=== PATIENT | male | born 1980 | race Caucasian/White ===

== ENCOUNTER 2018-01-02 16:35 | Emergency (ER) | payer MEDICARE, MEDICAID ==
--- NOTE | 2018-01-02 18:07 | UC ---
Ear Complaint HPI - HPI Summary HPI Summary: 37-year-old male comes in with a complaint of left ear pain. Patient was blowing his nose when he had sudden onset of severe left ear pain. He feels like he has ruptured his left eardrum. In the past as ruptured his right eardrum many says that feels similar. She's been having upper respiratory tract infection symptoms with increased congestion and that is why he was blowing his nose. - History of Current Complaint Stated Complaint: RIGHT EAR PAIN Time Seen by Provider: 01/02/18 17:57 - Allergies/Home Medications Allergies/Adverse Reactions: Allergies Allergy/AdvReac Type Severity Reaction Status Date / Time MS Penicillins [Penicillins] Allergy Intermediate Hives Verified 03/26/16 20:24 PMH/Surg Hx/FS Hx/Imm Hx - Additional Past Medical History Additional PMH: RIGHT TM RUPTURE - Surgical History Surgical History: Yes Surgery Procedure, Year, and Place: ear surgeries. [facility] (COCHLEAR IMPLANT) RIGHT EAR. LEFT KNEE SX - Family History Known Family History: Positive: Other - + asthma - Social History Alcohol Use: Daily Substance Use Type: None Smoking Status (MU): Heavy Every Day Tobacco Smoker Type: Cigarettes Amount Used/How Often: 1 ppd Length of Time of Smoking/Using Tobacco: 16 YRS Have You Smoked in the Last Year: Yes Household Exposure Type: Cigarettes - Immunization History Most Recent Tetanus Shot: unknown Review of Systems Constitutional: Negative Skin: Negative Eyes: Negative ENT: Sore Throat, Ear Ache, Nasal Discharge, Sinus Congestion, Sinus Pain/ Tenderness Respiratory: Negative Cardiovascular: Negative Gastrointestinal: Negative Motor: Negative Neurovascular: Negative Musculoskeletal: Negative Neurological: Negative Psychological: Negative Is Patient Immunocompromised?: No All Other Systems Reviewed And Are Negative: Yes Physical Exam Triage Information Reviewed: Yes Appearance: Well-Appearing, Well-Nourished, Pain Distress - MILD Vital Signs Reviewed: Yes Eye Exam: Normal Eyes: Positive: Conjunctiva Clear ENT: Positive: Pharyngeal erythema, Nasal congestion, Nasal drainage, Other - The right TM is not visible. The left TM appears to have a hole in it. Neck exam: Normal Neck: Positive: Supple, Nontender Respiratory: Positive: Lungs clear, Normal breath sounds, No respiratory distress, No accessory muscle use Cardiovascular: Positive: RRR Musculoskeletal Exam: Normal Musculoskeletal: Positive: Strength Intact, ROM Intact, No Edema Neurological Exam: Normal Neurological: Positive: Alert, Muscle Tone Normal Psychological Exam: Normal Psychological: Positive: Normal Response To Family, Age Appropriate Behavior Skin Exam: Normal Ear Complaint Course/Dx - Course Course Of Treatment: Patient already sees the ENT in town here Dr. Swanson. He will follow-up with Dr. Swanson. - Differential Dx/Diagnosis Provider Diagnoses: LEFT TM RUPTURE. SINUSITIS Discharge - Sign-Out/Discharge Documenting (check all that apply): Patient Departure All imaging exams completed and their final reports reviewed: No Studies - Discharge Plan Condition: Stable Disposition: HOME Patient Education Materials: Ruptured Eardrum (ED), Sinusitis (ED) Referrals: RAVEN Adames [Primary Care Provider] - Elliot Swanson MD [Medical Doctor] - Additional Instructions: FOLLOW UP WITH YOUR DOCTOR. GET RECHECKED FOR ANY WORSENING OF YOUR CONDITION OR QUESTIONS OR CONCERNS. - Billing Disposition and Condition Condition: STABLE Disposition: Home
[2018-01-02 18:08] VITALS: BP 133/85
== END 2018-01-02 18:16 | disposition home or self-care (01) ==
LOC: UCCORT 16:35
DX: H72.92 Unspecified perforation of tympanic membrane, left ear (principal); J32.9 Chronic sinusitis, unspecified; Z88.0 Allergy status to penicillin; F17.210 Nicotine dependence, cigarettes, uncomplicated
CPT/HCPCS: 99212; G0463

== ENCOUNTER 2018-04-24 18:21 | Emergency (ER) | payer MEDICARE, MEDICAID ==
[2018-04-24 19:04] VITALS: BP 138/81
--- NOTE | 2018-04-24 19:25 | UC ---
Skin Complaint HPI - HPI Summary HPI Summary: Pt c/o left hand pain, swelling and purulent discharge with concern for FB. Pt states that he got a wooden splinter in his left palm of hand ~ 1 week ago. Pt thought he removed full splinter but continues to have mild swelling, tenderness and able to get purulent discharge from wound. Pt has been soaking hand in warm water and epsom salts shanda up to three times per day. - History of Current Complaint Chief Complaint: UCSkin Time Seen by Provider: 04/24/18 18:57 Stated Complaint: SKIN ISSUE, LEFT HAND Hx Obtained From: Patient Onset/Duration: Gradual Onset, Lasting Days, Still Present Skin Exposure Onset/Duration: Days Ago Timing: Constant Onset Severity: Mild Current Severity: Moderate Pain Intensity: 9 Location: Discrete, Hand (Left) Character: Pain, Raised, Painful Aggravating Factor(s): Touch Associated Signs & Symptoms: Positive: Drainage, Tenderness Related History: Foreign Body - Allergy/Home Medications Allergies/Adverse Reactions: Allergies Allergy/AdvReac Type Severity Reaction Status Date / Time Penicillins Allergy Intermediate Hives Verified 04/24/18 18:59 PMH/Surg Hx/FS Hx/Imm Hx Previously Healthy: Yes - Surgical History Surgical History: Yes Surgery Procedure, Year, and Place: ear surgeries. [facility] (COCHLEAR IMPLANT) RIGHT EAR. LEFT KNEE SX - Family History Known Family History: Positive: Other - + asthma - Social History Occupation: Employed Full-time Lives: With Family Alcohol Use: Daily Substance Use Type: None Smoking Status (MU): Heavy Every Day Tobacco Smoker Type: Cigarettes Amount Used/How Often: 1 ppd Length of Time of Smoking/Using Tobacco: 16 YRS Have You Smoked in the Last Year: Yes Household Exposure Type: Cigarettes - Immunization History Most Recent Tetanus Shot: unknown Review of Systems All Other Systems Reviewed And Are Negative: Yes Constitutional: Positive: Negative Skin: Positive: Other - swelling, with open wound and c/o tenderness and able to produce small amount of purulent discharge. Eyes: Positive: Negative ENT: Positive: Negative Respiratory: Positive: Negative Cardiovascular: Positive: Negative Gastrointestinal: Positive: Negative Genitourinary: Positive: Negative Motor: Positive: Negative Neurovascular: Positive: Negative Musculoskeletal: Positive: Edema, Myalgia Neurological: Positive: Negative Psychological: Positive: Negative Is Patient Immunocompromised?: No Physical Exam Triage Information Reviewed: Yes Appearance: Well-Appearing Vital Signs: Initial Vital Signs Temp 97.9 F 04/24/18 19:00 Pulse 87 04/24/18 19:00 Resp 19 04/24/18 19:00 BP 138/81 04/24/18 19:00 Pulse Ox 99 04/24/18 19:00 Vital Signs Reviewed: Yes Eye Exam: Normal ENT Exam: Normal ENT: Positive: Other - hard of hearing Dental: Positive: Gross Decay/Caries @ Neck exam: Normal Respiratory: Positive: No respiratory distress Musculoskeletal: Positive: Edema @ - left plamar aspect of hand at base of second and third fingers Neurological Exam: Normal Psychological Exam: Normal Skin Exam: Other - plamar aspect of left hand at base of second and third fingers. swelling, with open wound and c/o tenderness and able to produce small amount of purulent discharge. Course/Dx - Differential Diagnoses - Skin Complaint Differential Diagnoses: Cellulitis, Foreign Body - Diagnoses Provider Diagnosis: Local infection of wound Discharge - Sign-Out/Discharge Documenting (check all that apply): Patient Departure All imaging exams completed and their final reports reviewed: No - Discharge Plan Condition: Stable Disposition: HOME Prescriptions: DOXYcycline CAP(*) [DOXYcycline 100MG CAP(*)] 100 mg PO Q12H #14 cap Patient Education Materials: Wound Infection (DC) Referrals: Dane LoraDane [Primary Care Provider] - Alanis Chakraborty MD [Medical Doctor] - If Needed - Billing Disposition and Condition Condition: STABLE Disposition: Home
[2018-04-24] MEDS ORDERED: Tetan/Diph/Pertus SYR(Tdap)* 0.5 ML SYR(BOOSTRIX) use SYR IM ONE (19:26)
--- NOTE | 2018-04-25 09:17 | UC ---
- Progress Note Progress Note: xray report left hand: IMPRESSION: Normal left hand radiograph. If the patient's symptoms persist, follow-up imaging is recommended. Course/Dx - Diagnoses Provider Diagnoses: Local infection of wound Discharge - Sign-Out/Discharge Documenting (check all that apply): Patient Departure All imaging exams completed and their final reports reviewed: Yes - Discharge Plan Condition: Stable Disposition: HOME Prescriptions: DOXYcycline CAP(*) [DOXYcycline 100MG CAP(*)] 100 mg PO Q12H #14 cap Patient Education Materials: Wound Infection (DC) Referrals: RAVEN Adames [Medical Doctor] - Alanis Chakraborty MD [Medical Doctor] - If Needed - Billing Disposition and Condition Condition: STABLE Disposition: Home
== END 2018-04-24 19:33 | disposition home or self-care (01) ==
LOC: UCCORT 18:21
DX: S61.402A Unspecified open wound of left hand, initial encounter (principal); L08.9 Local infection of the skin and subcutaneous tissue, unspecified; X58.XXXA Exposure to other specified factors, initial encounter; Y92.9 Unspecified place or not applicable; F17.210 Nicotine dependence, cigarettes, uncomplicated
CPT/HCPCS: 90471; 90715; 99212; G0463

== ENCOUNTER 2018-07-30 16:42 | Emergency (ER) | payer MEDICARE, MEDICAID ==
[2018-07-30 17:13] VITALS: BP 124/83
--- NOTE | 2018-07-30 17:31 | UC ---
Lower Extremity/Ankle HPI - HPI Summary HPI Summary: 37 -year-old male who attempted to start a lawnmower last evening when he twisted his left knee and states that it buckled. He's had difficulty walking and states he cannot lift the lower part of his leg up from the table. The history of knee surgery years ago. - History of Current Complaint Chief Complaint: UCLowerExtremity Stated Complaint: LEFT KNEE INJURY Time Seen by Provider: 07/30/18 17:18 Hx Obtained From: Patient Onset/Duration: Sudden Onset Severity Initially: Moderate Severity Currently: Moderate Pain Intensity: 6 Aggravating Factor(s): Ambulation Alleviating Factor(s): Nothing Able to Bear Weight: Yes - that he feels like his knee will buccal with weightbearing. - Allergies/Home Medications Allergies/Adverse Reactions: Allergies Allergy/AdvReac Type Severity Reaction Status Date / Time Penicillins Allergy Intermediate Hives Verified 07/30/18 17:13 Home Medications: Home Medications NK [No Home Medications Reported] 07/30/18 [History Confirmed 07/30/18] PMH/Surg Hx/FS Hx/Imm Hx Previously Healthy: Yes - Surgical History Surgical History: Yes Surgery Procedure, Year, and Place: ear surgeries. DENOMINATIONAL (COCHLEAR IMPLANT) RIGHT EAR. LEFT KNEE SX-lateral release age 14 yo - Family History Known Family History: Positive: Other - + asthma - Social History Lives: With Family Alcohol Use: Daily Alcohol Amount: 12 pack beer daily Substance Use Type: None Smoking Status (MU): Heavy Every Day Tobacco Smoker Type: Cigarettes Amount Used/How Often: 1 ppd Length of Time of Smoking/Using Tobacco: 16 YRS Have You Smoked in the Last Year: Yes Household Exposure Type: Cigarettes - Immunization History Most Recent Tetanus Shot: unknown Review of Systems All Other Systems Reviewed And Are Negative: Yes Motor: Positive: Decreased ROM - Patient is unable to lift the left lower leg off the table. Neurovascular: Positive: Negative Musculoskeletal: Positive: Decreased ROM - Pain with movement of knee and unable to lift his left lower leg up off the table. Neurological: Positive: Negative Is Patient Immunocompromised?: No Physical Exam Triage Information Reviewed: Yes Appearance: Well-Appearing, No Pain Distress, Well-Nourished Vital Signs: Initial Vital Signs Temp 98.5 F 07/30/18 17:08 Pulse 89 07/30/18 17:08 Resp 17 07/30/18 17:08 BP 124/83 07/30/18 17:08 Pulse Ox 100 07/30/18 17:08 Vital Signs Reviewed: Yes Musculoskeletal: Positive: Strength Limited @ - Patient is unable to lift his lower leg up off the table., ROM Limited @ - There appears to be some laxity with real movement of the lower leg. Patellar ligaments especially the patellar tibial ligament does not appear to be intact. There is tenderness in that area on palpation. The patella seems very loose with movement. Neurological: Positive: Alert Lower Extremity Course/Dx - Course Course Of Treatment: Left knee x-ray: FINDINGS: BONE DENSITY: Normal. BONES: There is no displaced fracture. JOINTS: There is moderate patellofemoral osteoarthritis. ALIGNMENT: There is no dislocation. SOFT TISSUES: Unremarkable. OTHER FINDINGS: None. IMPRESSION: OSTEOARTHRITIS. NO ACUTE OSSEOUS INJURY. IF SYMPTOMS PERSIST, RECOMMEND REPEAT IMAGING. I consulted Dr. Devine and then consulted Dr. Youngblood orthopedist, who reviewed the x-ray and advised a knee immobilizer, crutches and to follow-up at his office early morning to call tomorrow and make that appointment. Patient is agreeable to this plan of action. - Differential Dx/Diagnosis Provider Diagnosis: Patellar tendon rupture Discharge - Sign-Out/Discharge Documenting (check all that apply): Patient Departure All imaging exams completed and their final reports reviewed: Yes - Discharge Plan Condition: Fair Disposition: HOME Patient Education Materials: Tendon Rupture (ED) Referrals: Salvador Oseguera MD [Medical Doctor] - No Primary Care Phys,NOPCP [Primary Care Provider] - Additional Instructions: The knee immobilizer in place, apply ice to the sore area, Tylenol for pain or Motrin as directed. You are to call the office tomorrow and make an appointment for early morning. The office number is [phone]. Tell them you were seen at [facility], the nurse practitioner spoke with Dr. Youngblood on the phone who advised knee immobilizer and crutches and to call the office tomorrow and make an appointment for early for further care. - Billing Disposition and Condition Condition: FAIR Disposition: Home
== END 2018-07-30 18:36 | disposition home or self-care (01) ==
LOC: UCCORT 16:42
DX: S76.112A Strain of left quadriceps muscle, fascia and tendon, initial encounter (principal); Z88.0 Allergy status to penicillin; F17.210 Nicotine dependence, cigarettes, uncomplicated; X50.9XXA Other and unspecified overexertion or strenuous movements or postures, initial encounter; Y92.9 Unspecified place or not applicable
CPT/HCPCS: 99213; G0463

== ENCOUNTER 2018-08-02 13:17 | Day surgery (SDC) | payer MEDICARE, MEDICAID ==
[2018-08-02] MEDS ORDERED: Midazolam* 1 MG/ML 2 ML VIAL (2 MG) ONE (13:53)
[2018-08-02] MEDS ORDERED: fentaNYL* 50 MCG/ML 2 ML VIAL (100 MCG VIAL) ONE ×2 (13:53→19:20)
[2018-08-02] MEDS ORDERED: Dexamethasone IV* 4 MG/ML 1 ML (4 MG) ONE (17:14)
[2018-08-02] MEDS ORDERED: Ondansetron INJ* 2 MG/ML VIAL ONE (17:14)
[2018-08-02] MEDS ORDERED: fentaNYL* 50 MCG/ML 5 ML VIAL (250 MCG VIAL) ONE (17:14)
[2018-08-02] MEDS ORDERED: Lidocaine 2% PF * 5 ML VIAL ONE (17:14)
[2018-08-02] MEDS ORDERED: Midazolam* 1 MG/ML 5 ML VIAL (5 MG) ONE (17:14)
[2018-08-02] MEDS ORDERED: Propofol* 10 MG/ML 20 ML BTL ONE (17:14)
[2018-08-02] MEDS ORDERED: ceFAZolin 2 GM PREMIX in ORs 2 GM/50 ML BAG IVPB ONE (17:23)
[2018-08-02] MEDS ORDERED: Buffered Lidocaine 1% SYRIN* 1 ML/SYRINGE INTRADERM ONE (17:25)
[2018-08-02] MEDS ORDERED: Clindamycin 900 MG IVPREMIX(* 900 MG/50 ML SDV IV ONE (17:28)
[2018-08-02] MEDS ORDERED: Phenylephrine 40 MCG/ML SYRINGE ONE (17:56)
[2018-08-02] MEDS ORDERED: Bupivacaine 0.25% W/EPI* 10 ML SDV ONE (18:00)
[2018-08-02] MEDS ORDERED: Lactated Ringers 1000 ML Bag* 1,000 ML IV SCH (18:00)
[2018-08-02] MEDS ORDERED: EPHEDrine (Pressors)* 50 MG/ML VIAL ONE (18:10)
[2018-08-02] MEDS ORDERED: Ketorolac INJ* 30 MG/ML 1 ML VIAL ONE (18:34)
[2018-08-02] MEDS ORDERED: Ondansetron INJ* 2 MG/ML VIAL IV PRN (18:40)
[2018-08-02] MEDS ORDERED: Naloxone* 0.4 MG/ML 1 ML VIAL IV PRN (18:40)
[2018-08-02] MEDS ORDERED: fentaNYL* 50 MCG/ML 2 ML VIAL (100 MCG VIAL) IV PRN (18:40)
[2018-08-02] MEDS ORDERED: HYDROmorphone INJ1* 1 MG/ML SYRINGE IV PRN (18:40)
[2018-08-02] MEDS ORDERED: HYDROmorphone INJ1* 1 MG/ML SYRINGE ONE (18:56)
[2018-08-02 20:51] VITALS: BP 133/78
--- NOTE | 2018-08-03 20:17 | OP ---
OPERATIVE REPORT: DATE OF OPERATION: 08/02/18 DATE OF : 76 SURGEON: Salvador Oseguera MD MANAGER BUSINESS MANAGEMENT: IKE Soto A physician assistant spa manager was required for the length of the procedure for help with positioning, instrumentation, and closure. ANESTHESIOLOGIST: Dr. Nicholas Andujar. ANESTHESIA: General anesthesia, local anesthesia with Marcaine 0.5% with epinephrine. PRE-OP DIAGNOSES: 1. Left knee patellar tendon rupture. 2. Left knee chronic loose body, medial patella. POST-OP DIAGNOSES: 1. Left knee patellar tendon rupture. 2. Left knee chronic loose body, medial patella. 3. Chronic lateral retinacular release, left knee. OPERATIVE PROCEDURE: 1. Left knee open patellar tendon repair. 2. Left knee open removal of loose body and medial retinaculum repair. 3. Left knee assessment of lateral retinaculum. 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 The patient injured himself when starting a lawnmower. He fell over and could not get up. He was unable to extend his left knee. The following day, the patient went to [facility]. Again, unable to actively extend his knee there. He was placed in a knee immobilizer and given crutches. The patient had a history of a lateral release surgery in the left knee in 1994 and he has had some occasional pain or the sensation of instability in that knee since. He was unable to articulate exactly what he meant by instability. On exam, the patient had mild anterior soft tissue swelling about the proximal patella tendon. He had significant tenderness to palpation directly at the origin of the patellar tendon off the patella. Negative straight leg raise. The patient had knee extension strength less than 3/5. He could not extend that knee at all against gravity. X-rays of the left knee from 07/30/18 showed what looked to be a loose body or body about the medial aspect of the patellofemoral compartment, likely consistent with a distant past patellar instability episode. We placed the patient in knee immobilizer, had him continue crutches. Initially , we scheduled the patient for an MRI, but an operating room day became available the following day, so we decided to bring the patient directly to the operating room given the patient's exam. I discussed risks and potential complications with the patient of surgery. ANTIBIOTICS: Clindamycin 900 mg IV. IV FLUIDS: 2000 cc crystalloid. TOURNIQUET TIME: 84 minutes at 300 mmHg, left thigh tourniquet. CNZZ-RT-XPFT TIME: 78 minutes. SPECIMEN: Loose body. IMPLANTS: #2 FiberWire suture, x2. A Mitek Gryphon anchor x1, double loaded. COMPLICATIONS: None. ESTIMATED BLOOD LOSS: Minimal. DESCRIPTION OF PROCEDURE: In preoperative holding, the patient signed a written consent. Operative extremity was marked in preoperative holding. The patient was taken back to the operating room and placed supine on the operating room table. Sedated and intubated. A foot post was placed on the table to let the knee rest in 20 degrees of flexion. A tourniquet was placed around the left thigh. The left lower extremity was prepped and draped. Surgical time-out performed. Esmarch was applied and tourniquet elevated to 300 mmHg. I made standard anterior longitudinal skin incision. Next, dissected down to the extensor mechanism. Notable in the extensor mechanism was immediately visible a window to the lateral aspect of the patellofemoral compartment and patella, consistent with a prior lateral retinacular release, that had clearly gone through all layers of the retinaculum including synovium, creating a connection between the joint and the subcutaneous space. No evidence of acute trauma or acute tearing in this location. This defect appeared chronic. Evaluation of the proximal patella showed the superficial most aspect of the superficial periosteum over the patella and the patellar tendon was intact, but everything deep to that was torn. I learned this by making a longitudinal exploratory cut in that tissue at the midpoint between the medial and lateral aspect of the patellar tendon and feeling the undersurface and visualizing the torn patellar tendon. I dissected the tissue off the patella. The patellar tendon was noted both for being rather narrow and rather thin from superficial to deep. I also explored medial to the patellofemoral compartment. With my finger placed through the joint, I could palpate what had appeared to be a chronic loose body medial to the patella. It was clear that there was a soft tissue connection to the remainder of the patella. I figured that that could only irritate him currently and in the future, so decided to excise that. It could not be removed from within the joint, so I sharply dissected just the smallest amount of tissue off the patella, that superficial periosteum, revealing that loose body, removed it with sharp dissection. Interestingly, when I visualized the area surrounding this, the medial retinaculum looked somewhat deficient, although this was likely because of the sharp dissection off the loose body. I decided therefore that I would repair this medial retinaculum at the conclusion of the case. I next evaluated the lateral retinaculum. There was no evidence of acute tearing here and I figured that the patient's lateral retinaculum had been released for the past 20 years. I did not want to overly tighten the knee laterally or add lateral patellar tilt, but I also did not like the size of the knee joint itself seemed confluent with the subcutaneous tissue. Therefore, I placed 2 stitches in the lateral retinaculum to close down that window. I flexed the knee to 90 degrees of flexion and found that the repaired tissue became somewhat tight and the patella seemed laterally tilted during the range of motion. Therefore, I thought this repair might do more harm than good and so I removed those sutures. I next moved forward with the proximal patellar tendon repair. I prepared the bony surface of the distal patella with a curette, rongeur, and a ball-tipped bur. I next placed my 3 tunnels using a 2.0-mm drill bit. I placed passing suture. I next placed my Krackow stitches in the patellar tendon. I normally use FiberWire #5 suture for this. However, given how small the patellar tendon itself was and how minimal the subcutaneous tissue was between the skin and patellar tendon, I thought that these #5 FiberWire sutures might be overly prominent if I use them. Therefore, I used a smaller suture, FiberWire #2. I placed 2 Krackow stitches in the patellar tendon. I brought the FiberWire #2 sutures through the bone tunnels. I adjusted the position of those sutures proximally so that no soft tissue would become strangled by the ends of the suture. I tied 2 knots proximally with the knee in full extension. This excellently brought patellar tendon to bone. I was very happy with the repair. After the patellar tendon repair, I repaired the medial retinaculum. I did so with a Mitek Gryphon anchor placed into the patella. I placed 2 horizontal mattress stitches in the bulk of the medial retinaculum, which pulled it down nicely to bone. I next trialed the strength of my patellar tendon repair. Redfield easily flexed the knee down to 45 without damage to any of the involved tissues. Irrigation. Closure of the patellar tendon paratenon with a running stitch using Vicryl 0 suture. Closure of the subcutaneous tissue with buried simple stitches using Vicryl 2-0 suture. Closure of the skin with a running stitch using 4-0 nylon. Xeroform, 4x4s, ABDs, sterile Webril, Kanu bandage from foot to proximal thigh. I did use local anesthesia and Marcaine 0.5% with epinephrine prior to dressing application. After the dressing was applied, I dropped the tourniquet. A knee brace was applied, locked in extension. The patient was extubated and brought to the PACU. DISPOSITION: The patient was discharged home when medically stable. Wound care instructions provided. The patient was written prescriptions for Valium and Percocet to take as needed. The patient will follow up with me in the office in approximately 14 days. The patient will not start physical therapy until after that first clinic visit. [id number]/CPS #: [id number] LOIS
== END 2018-08-02 21:00 | disposition home or self-care (01) ==
LOC: OR 13:17
PROVIDERS: ATTEND Orthopaedic Surgery
DX: S76.112A Strain of left quadriceps muscle, fascia and tendon, initial encounter (principal); M23.42 Loose body in knee, left knee; X50.0XXA Overexertion from strenuous movement or load, initial encounter; Y92.9 Unspecified place or not applicable; I34.1 Nonrheumatic mitral (valve) prolapse; Z72.0 Tobacco use; F31.9 Bipolar disorder, unspecified
CPT/HCPCS: J0690; J1100; J1170; J1885; J2250; J2405; J2704; J3010

== ENCOUNTER 2018-09-11 02:33 | Inpatient (IN) | payer MEDICARE, MEDICAID ==
[2018-09-11] MEDS ORDERED: Morphine 4 MG/ML VIAL (1 ml) 4 MG/ML VIAL IV ONE (02:58)
[2018-09-11] MEDS ORDERED: ceFAZolin 1 GM ADVAN(*) 1 GM in NS 0.9% 50 ML* 50 ML IVPB ONE (02:59)
[2018-09-11] MEDS ORDERED: oxyCODONE/Acetamin 5/325 MG* TAB PO PRN ×2 (03:02→22:16)
[2018-09-11] MEDS ORDERED: diPHENhydraMINE IV* 50 MG/ML 1 ml VIAL (BENADRYL) IV PRN (03:02)
[2018-09-11] MEDS ORDERED: Ondansetron INJ* 2 MG/ML VIAL IV PRN (03:02)
[2018-09-11] MEDS ORDERED: Morphine 10 MG/ML VIAL (1 ml) IV PRN (03:02)
--- NOTE | 2018-09-11 03:02 | ED ---
Lower Extremity - HPI Summary HPI Summary: The patient is a 37 year old M brought in by EMS to [facility] with a chief complaint of an open wound on his knee. He fell backwards down his stairs early today and landed with his L knee flexed which split open stitches from a previous surgery he had for a patellar tendon repair on 08/03/18. The pt reported that the pain comes in waves and that his knee did not hit the ground. The pain is rated a 7/10. Pt denies a fever. Per triage the wound is 6cm x 3 cm. He also reported that he was healing well and advised not to smoke per Dr. Oseguera to allow the incision to heal correctly. He is unable to straighten his knee. The pt was drinking tonight prior to the injury happening. - History of Current Complaint Stated Complaint: FALL PER EMS Time Seen by Provider: 09/11/18 02:36 Hx Obtained From: Patient Mechanism Of Injury: Other - Fell down stairs and flexed L knee. The knee did not hit the ground per pt. Onset of Pain: Immediate Onset/Duration: Still Present Severity Initially: Severe Severity Currently: Severe Pain Intensity: 7 Pain Scale Used: 0-10 Numeric Timing: Constant Location: Other - L knee cap Associated Signs And Symptoms: Positive: Knee Pain, Other - Open wound approximately 6cm x 3cm as per triage.. Negative: Fever Aggravating Factor(s): Movement Alleviating Factor(s): Rest - Allergies/Home Medications Allergies/Adverse Reactions: Allergies Allergy/AdvReac Type Severity Reaction Status Date / Time Penicillins Allergy Intermediate Hives Verified 08/02/18 14:15 PMH/Surg Hx/FS Hx/Imm Hx Previously Healthy: No Endocrine/Hematology History: Denies: Hx Diabetes Cardiovascular History: Denies: Hx Hypertension, Hx Pacemaker/ICD Respiratory History: Reports: Hx Asthma History: Denies: Hx Renal Disease Sensory History: Denies: Hx Hearing Aid Psychiatric History: Reports: Hx Panic Disorder - Surgical History Surgery Procedure, Year, and Place: MULTIPLE EAR SURGERIES. [facility] (COCHLEAR IMPLANT) RIGHT EAR REVISION JUST DONE [address] ORTIZ ;. LEFT KNEE SX - LATERAL RELEASE AGE 14 ; Infectious Disease History: No Infectious Disease History: Reports: Hx Shingles Denies: Hx Clostridium Difficile, Hx Hepatitis, Hx Human Immunodeficiency Virus (HIV), Hx of Known/Suspected MRSA, Hx Tuberculosis, Hx Known/Suspected VRE , Hx Known/Suspected VRSA, History Other Infectious Disease, Traveled Outside the [place] in Last 30 Days - Family History Known Family History: Positive: Other - + asthma - Social History Alcohol Use: Daily Alcohol Amount: 12 pack beer daily Substance Use Type: Reports: None Hx Tobacco Use: Yes Smoking Status (MU): Heavy Every Day Tobacco Smoker Type: Cigarettes Amount Used/How Often: 1 ppd Length of Time of Smoking/Using Tobacco: 16 YRS Have You Smoked in the Last Year: Yes Review of Systems Negative: Fever Positive: Decreased ROM, Other - L Knee wound approximately 6cm x 3cm per triage. All Other Systems Reviewed And Are Negative: Yes Physical Exam - Summary Physical Exam Summary: Appearance: Well-appearing, Well-nourished, lying in bed comfortable Skin: Warm, dry, no obvious rash Eyes: sclera anicteric, no conjunctival pallor ENT: mucous membranes moist Neck: deferred Respiratory: No signs of respiratory distress Cardiovascular: Appears well perfused, pulses are nml Abdomen: deferred Musculoskeletal: Long longitudinal incision of knee which is 80% dehisced and is actively open. Unable to move his L knee Neurological: Awake and alert, mentation is normal, speech is fluent and appropriate Psychiatric: affect is normal, does not appear anxious or depressed Triage Information Reviewed: Yes Vital Signs On Initial Exam: Initial Vitals Temp Pulse Resp BP Pulse Ox 97.8 F 98 20 116/82 96 09/11/18 02:38 09/11/18 02:38 09/11/18 02:38 09/11/18 02:38 09/11/18 02:38 Vital Signs Reviewed: Yes Procedures - Laceration/Wound Repair 1 Location: lower extremity - L knee cap Description: Linear Anesthesia: Local - Novocaine: Length, Depth and Shape: Longitudinal dehission of L knee. approximately 6cm x 3cm. Betadine Prep?: Yes Irrigated w/ Saline (ccs): 200 Laceration/Wound Explored: clean Closure: Single Layer Suture Type: Other - ethilon Number of Sutures: 6 Layer Closure?: No - closed with sutures Sterile Dressing Applied?: No - Closed with sutures Diagnostics - Vital Signs Vital Signs Temp Pulse Resp BP Pulse Ox 09/11/18 02:38 97.8 F 98 20 116/82 96 - Laboratory Lab Statement: Any lab studies that have been ordered have been reviewed, and results considered in the medical decision making process. Re-Evaluation - Re-Evaluation First Eval Re-Evaluation Time: 03:08 Change: Improved Comment: Morphine was administered along with Novocain and repair of the wound with sutures occurred. Lower Extremity Course/Dx - Course Course Of Treatment: The patient is a 37 year old M brought in by EMS to [facility] with a chief complaint of an open wound on his knee. He fell backwards down his stairs early today and landed with his L knee flexed which split open stitches from a previous surgery he had for a patellar tendon repair on 08/03/18. The pt reported that the pain comes in waves and that his knee did not hit the ground. The pt wanted something for the pain but stated that he did not want any opiods. The pt will receive proper wound treatment including an open repair of his patellar tendon. The wound was cleaned using 200 ccs of saline solution before being closed with 6 ethilon sutures and wrapped with gauze and an billy bandage. The pt was given local novocain. The pt was also given a morphine drip of 10mg upon request by the pt for pain. He was also given Cefazolin Sodium as an ABX. He was then given 2 tabs of Percocet 5/325 tabs, a nicotine patch, and Lactated Ringer's 1000 mls. The pt will be admitted to [facility] for an internal patellar repair later today per Dr. Arndt, orthorpedic. - Diagnoses Provider Diagnoses: Surgical wound dehiscence - Physician Notifications Discussed Care Of Patient With: Davonte Cline Time Discussed With Above Provider: 03:28 Instructed by Provider To: Admit As Inpatient Discharge - Sign-Out/Discharge Documenting (check all that apply): Patient Departure - admitted All imaging exams completed and their final reports reviewed: Yes Patient Received Moderate/Deep Sedation with Procedure: No - Discharge Plan Condition: Stable Disposition: ADMITTED TO [facility] - Billing Disposition and Condition Condition: STABLE Disposition: Admitted to [facility] - Attestation Statements Document Initiated by Scribe: Yes Documenting Scribe: Ramez Waters Provider For Whom Scribe is Documenting (Include Credential): Anthony Irizarry MD Scribe Attestation: Ramez Youssef, scribed for Anthony Irizarry MD on 09/11/18 at 0518. Scribe Documentation Reviewed: Yes Provider Attestation: The documentation as recorded by the scribe, Ramez Waters accurately reflects the service I personally performed and the decisions made by me, Anthony Irizarry MD Status of Scribe Document: Viewed
--- OUTSIDE RECORDS SUMMARY | 2018-09-11 03:18 | XMS REPORT | Continuity of Care Document ---
:1980 External Reference #:[id number] Author Name Katrina Busch Care Team Providers Name Role Phone Mahamed Valiente MD Primary Care Physician Unavailable Payers Date Identification Numbers Payment Provider Subscriber Policy Number: [id number] Medicare Yonathan Sarah PayID: [id number] [address] [place] [address] Expires: 2018 Policy Number: [id number] Medicare Yonathan Sarah PayID: [id number] [address] [place] [address] Policy Number: [id number] Medicaid Yonathan Sarah PayID: [id number] [address] [place] [address] Problems Active Problems Provider Date Unspecified injury of muscle(s) and Salvador Oseguera MD Onset: 08/15/2018 tendon(s) of anterior muscle group at lower leg level, left leg, subsequent encounter Family History Date Family Member(s) Observation Comments General No Current Problems Social History Type Date Description Comments Sex Unknown Lives With Spouse ETOH Use 12 pack of beer per day Tobacco Use Start: Unknown Heavy tobacco smoker (more than 10 cigarettes/day) Smoking Status Reviewed: 08/29/18 Heavy tobacco smoker (more than 10 cigarettes/day) Allergies, Adverse Reactions, Alerts Active Allergies Reaction Severity Comments Date Penicillin 10/12/2010 Medications Active Medications SIG Qnty Indications Ordering Provider Date Percocet 1/2 to 1 tabs by 60tabs S86.202D Salvador Pantoja 08/15/2018 5-325mg mouth every 4 - 6 MD Ana Rosa Tablets hours as needed for pain, Generic Ok Naproxen 500mg every 12 60tabs S86.202D [facility] 08/15/2018 500mg Tablets hours orally, MD Ana Rosa generic Ok Clindamycin HCL one tablet three 15caps [facility] 08/15/2018 300mg times daily x 5 MD Ana Rosa Capsules days Percocet take 1 tabs by 30tabs [facility] 08/02/2018 5-325mg mouth q4-6 hours MD Ana Rosa Tablets as needed pain Naproxen 1 by mouth twice 30tabs [facility] 08/02/2018 500mg Tablets a day MD Ana Rosa History Medications Diazepam 1/2 to 1 tablet 30tabs S86.202D [facility] 08/15/2018 - 5mg Tablets every 8 hours MD Ana Rosa 08/28/2018 as needed for pain, MDD 2 Valium 1 tab by mouth 15tabs [facility] 08/02/2018 - 5mg Tablets q 8 hours as MD Ana Rosa 08/28/2018 needed spasm Sulfamethoxazole/Tri 1 tab po bid x 10tabs [facility] 08/02/2018 - methoprim DS 5 days MD Ana Rosa 08/28/2018 800-160mg Tablets No Active Unknown 08/01/2018 - Medications 08/02/2018 Vital Signs Date Vital Result Comment 08/29/2018 10:43am Height 72 inches 6'0" Weight 180.00 lb Heart Rate 74 /min BP Systolic 118 mmHg BP Diastolic 74 mmHg Respiratory Rate 12 /min Pain Level 4 BMI (Body Mass Index) 24.4 kg/m2 08/15/2018 10:13am Height 72 inches 6'0" Weight 180.00 lb Heart Rate 78 /min BP Systolic 128 mmHg BP Diastolic 76 mmHg Respiratory Rate 14 /min Body Temperature 97.6 F Pain Level 9 BMI (Body Mass Index) 24.4 kg/m2 08/01/2018 9:52am Height 72 inches 6'0" Weight 180.00 lb Heart Rate 80 /min BP Systolic 124 mmHg BP Diastolic 82 mmHg Respiratory Rate 18 /min Body Temperature 98.6 F Pain Level 6 BMI (Body Mass Index) 24.4 kg/m2 Procedures Date Code Description Status 08/02/2018 58940 Reconstruct Ligament Knee Extra-Articular Completed 08/02/2018 93740 Reconstruct Ligament Knee Extra-Articular Completed 08/02/2018 19258 Repair Infrapatellar Tendon Primary Completed 08/02/2018 20934 Repair Infrapatellar Tendon Primary Completed Encounters Type Date Location Provider Dx Diagnosis Office Visit 08/01/2018 [facility] Salvador Pantoja S86.812A Strain of musc/tend 9[facility] Oseguera MD at lower leg level, left leg, init Office Visit 10/12/2010 [facility] Helio Olvera, 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
--- OUTSIDE RECORDS SUMMARY | 2018-09-11 03:19 | XMS REPORT | Continuity of Care Document ---
:1980 External Reference #:[id number] Author Name Bess Amezcua Care Team Providers Name Role Phone Kirstin Omalley PA Care Team Information Truck Supervisor Unavailable Kirstin Omalley PA Primary Care Physician Unavailable Payers Date Identification Numbers Payment Provider Subscriber Policy Number: [id number] Medicare Yonathan Sarah PayID: [id number] [address] [place] [address] Policy Number: [id number] Medicaid Yonathan Sarah Group Name: 2 1 [address] PayID: [id number] [place] [address] Problems Active Problems Provider Date Anxiety disorder Onset: 03/18/2015 Tobacco dependence syndrome Onset: 03/18/2015 Conduction disorder of the heart Onset: 03/18/2015 Dysphagia Onset: 03/18/2015 Family History Date Family Member(s) Observation Comments Father Heart Disease Social History Type Date Description Comments 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 08/06/[address] Gallardoocjil 1-2 by mouth 20taElliot Boyle M.D. 05/02/2018 5-325mg four times a day Tablets as needed for pain Naproxen 1 by mouth every Unknown 375mg Tablets day History Medications Prednisone 1 by mouth every day 3tabs Elliot Swanson, 01/22/2018 - 20mg Tablets Adalberto.Gerardo 04/24/2018 Percocet 1-2 by mouth two 12tabs Elliot Swanson, 01/14/2018 - 5-325mg times a day as needed M.D. 04/24/2018 Tablets for pain Ciprodex 5 drops twice a day x 7.500ml Elliot Swanson, 01/14/2018 - 0.3-0.1% 10 days left ear M.D. 04/24/2018 Suspension Clindamycin HCL 1 by mouth twice a 20caps Elliot Swanson, 03/30/2016 - 300mg day for 10 days M.D. 04/24/2018 Capsules Probiotic Acidophilus 1 every day 14caps Elliot Swanson, 03/30/2016 - M.D. 04/24/2018 Capsules Azithromycin 2 pills x 1 day then 6tabs Elliot Swanson, 07/08/2015 - 250mg 1 every day for 4 M.D. 03/29/2016 Tablets days Meclizine HCL 1-2 by mouth every 6 14tabs Elliot Swanson, 07/01/2015 - 12.5mg hours as needed M.D. 03/29/2016 Tablets dizzyness Hydrocodone-Acetamino 1 by mouth every 4-6 30tabs Elliot Swanson, 2015 - phen hours as needed M.D. 03/29/2016 5-325mg Tablets Zofran Odt 1 by mouth night 8tabs Elliot Swanson, 06/21/2015 - 4mg Tablets before surgery and M.D. 03/29/2016 Dispers morning of surgery and then every 6 hours as needed. Nexium one tab daily 60caps Elliot Swanson, 05/11/2015 - 40mg Capsules DR M.DMei 04/24/2018 Hydroxyzine HCL Hydroxyzine HCL 50 MG 90tabs Unknown 03/18/2015 - 50mg Tabs 05/10/2015 Tablets Hydroxyzine 1-2 as needed for 60tabs Unknown 03/18/2015 - 50mg anxiety 08/05/2018 Tablets Ultracet 1-2 PO Q4H prn 30tabs Elliot Swanson, 01/31/2008 - Tablets M.D. 05/10/2015 Chantix .5mg qd days 1-3 QS Elliot Swanson, 12/31/2007 - .5mg Misc M.D. 05/10/2015 .5mg bid day 4-7 1.mg bid day 8-30 Ciprodex 2 gtts bid x 10 days 7.500ml Elliot Swanson, 12/24/2007 - 0.3-0.1% M.D. 05/10/2015 Suspension Zithromax Z-Alex Per PKG Instructions 1tabs Elliot Swanson, 12/06/2007 - 250mg M.D. 02/04/2008 Tablets Percocet 2 po qid prn for pain 40tabs Elliot Swanson, 11/18/2007 - 5-325mg M.D. 05/10/2015 Tablets Avelox 1 po qd x 3 days 3tabs Elliot Swanson, 11/18/2007 - 400mg Tablets M.D. 02/04/2008 Vicodin 1-2 PO Q4H prn 40tabs Elliot Swanson, 11/11/2007 - 5-500mg Tablets M.D. 11/18/2007 Augmentin 1 PO bid X 10 Days 20tabs Elliot Swanson, 05/28/2007 - 875mg Tablets M.D. 05/28/2007 Augmentin 1 PO bid X 10 Days 20tabs Elliot Swanson, 05/28/2007 - 875mg Tablets M.D. 02/04/2008 Floxin Otic 2 gtts bid X 10 QS Elliot Swanson, 04/29/2007 - 0.3% Days, affected ear M.D. 05/10/2015 Solution Clindamycin HCL 2 PO tid X 7 days 42caps Elliot Swanson, 03/19/2007 - 300mg M.D. 03/26/2007 Capsules Diflucan 200MG Day 1 Then Elliot Swanson, 03/19/2007 - 200mg Tablets 100MG For 7 Days M.D. 05/10/2015 Floxin Otic 3 gtts bid In both 10ml Elliot Swanson, 03/11/2007 - 0.3% Ear X 7 Days M.D. 03/21/2007 Solution Zyprexa 1 PO qd Unknown - 20mg Tablets 05/10/2015 Trazodone HCL 1 PO qd Unknown - 150mg 05/10/2015 Tablets Hydroxyzine HCL 1 PO bid Unknown - 25mg 05/10/2015 Tablets Ventolin HFA prn Unknown - 08/05/2018 108(90Base) mcg/Act Aerosol Vital Signs Date Vital Result Comment 08/27/2018 3:02pm Weight 179.00 lb Height 72 inches 6'0" BMI (Body Mass Index) 24.3 kg/m2 BP Systolic 119 mmHg BP Diastolic 84 mmHg Heart Rate 93 /min O2 % BldC Oximetry 99 % Body Temperature 97.8 F Pain Level 0 08/06/2018 5:23pm Weight 180.00 lb Height 72 inches 6'0" BMI (Body Mass Index) 24.4 kg/m2 BP Systolic 144 mmHg BP Diastolic 88 mmHg Heart Rate 107 /min O2 % BldC Oximetry 100 % Body Temperature 98.1 F Pain Level 0 05/09/2018 10:16am Weight 179.00 lb Height 71 inches 5'11" BMI (Body Mass Index) 25.0 kg/m2 BP Systolic 137 mmHg BP Diastolic 77 mmHg Heart Rate 89 /min O2 % BldC Oximetry 97 % Body Temperature 98.4 F Pain Level 7 01/14/2018 3:48pm Weight 171.00 lb Height 71 inches 5'11" BMI (Body Mass Index) 23.8 kg/m2 BP Systolic 124 mmHg BP Diastolic 89 mmHg Heart Rate 90 /min O2 % BldC Oximetry 97 % Body Temperature 98.2 F Pain Level 7 03/30/2016 3:59pm Weight 179.00 lb Height 71 inches 5'11" BMI (Body Mass Index) 25.0 kg/m2 BP Systolic 132 mmHg BP Diastolic 84 mmHg Heart Rate 89 /min O2 % BldC Oximetry 98 % Body Temperature 97.6 F 05/11/2015 5:26pm Weight 195.00 lb steel toed boots Height 71 inches 5'11" BMI (Body Mass Index) 27.2 kg/m2 BP Systolic 140 mmHg BP Diastolic 88 mmHg Heart Rate 88 /min O2 % BldC Oximetry 98 % Body Temperature 98.8 F 11/18/2007 4:03pm Weight 182.00 lb Height 72 inches 6'0" BMI (Body Mass Index) 24.7 kg/m2 BP Systolic 136 mmHg BP Diastolic 90 mmHg Heart Rate 109 /min O2 % BldC Oximetry 99 % Body Temperature 95.9 F 07/22/2007 4:38pm Weight 195.00 lb Height 72 inches 6'0" BMI (Body Mass Index) 26.4 kg/m2 Heart Rate 97 /min 05/24/2007 4:25pm Weight 202.00 lb Height 72 inches 6'0" BMI (Body Mass Index) 27.4 kg/m2 Heart Rate 103 /min O2 % BldC Oximetry 100 % 04/29/2007 12:59pm Weight 203.00 lb Height 72 inches 6'0" BMI (Body Mass Index) 27.5 kg/m2 BP Systolic 122 mmHg BP Diastolic 80 mmHg Heart Rate 86 /min O2 % BldC Oximetry 100 % 04/05/2007 3:48pm Weight 196.50 lb Heart Rate 94 /min O2 % BldC Oximetry 97 % 03/19/2007 9:05am Weight 194.00 lb BP Systolic 118 mmHg BP Diastolic 78 mmHg Heart Rate 84 /min 03/11/2007 8:26am Weight 199.00 lb BP Systolic 128 mmHg BP Diastolic 80 mmHg Body Temperature 96.2 F Results Test Date Facility Test Result H/L Range Note Laboratory test 07/08/2015 [facility] Throat Culture See Note [address] [place] [address] [phone] TSH+Free T4 02/03/2008 [facility] Thyroid Stim 1.93 uIU/mL 0.49-4.[address] [place] [address] [phone] Free T4 0.89 ng/dL 0.71-1.85 1 NORMAL THROAT JOSE Procedures Date Code Description Status 08/06/2018 94523 Fiberoptic Laryngoscopy,Diag. Completed 05/29/2018 08629 unlisted procedure/service otolaryngology Completed 05/02/2018 18906 Replacement Osseointergrated Inplant W/O Mastoidectomy Completed 05/02/2018 76448 Replacement Osseointergrated Inplant W/O Mastoidectomy Completed 05/02/2018 89783 Anesthesia, Facial Bone Surgery Not Otherwise Spec Completed 03/06/2018 75996 Cat Scan Orbit/Ear W/O Contrast,computed tomography Completed 03/06/2018 90444 Cat Scan Orbit/Ear W/O Contrast,computed tomography Completed 03/06/2018 71768 Cat Scan Orbit/Ear W/O Contrast,computed tomography Completed 01/25/2018 01394 Cat Scan Maxillofacial W/O Contrast,computed Completed tomography 01/25/2018 26891 Cat Scan Maxillofacial W/O Contrast,computed Completed tomography 01/25/2018 01054 Cat Scan Maxillofacial W/O Contrast,computed Completed tomography 01/22/2018 70729 Debridement Mastoidectomy Cavity, Simple Completed 01/22/2018 37451 Nasal Endoscopy, Diag. Completed 03/30/2016 26263 Remove Impacted Cerumen Completed 07/01/2015 67648 Implantation Osseointegrated Implant Temporal Bone Completed W/Percutaneous 07/01/2015 91427 Implantation Osseointegrated Implant Temporal Bone Completed W/Percutaneous 07/01/2015 43352 Esophagoscopy/Diagnostic Completed 07/01/2015 72227 Larynogoscopy,Dir. With Or W/O Trach. Diag. W/Opert. Completed Microscope 07/01/2015 74428 Anesthesia, Neck Organ Surgery Not Otherwise Spec 1Yr Completed Or Older 05/25/2015 66767 Audiometry, Comprehensive Completed 05/25/2015 92184 Audiometry, Comprehensive Completed 05/25/2015 48803 Tympanometry Completed 05/25/2015 52654 Tympanometry Completed 05/11/2015 60674 Fiberoptic Laryngoscopy,Diag. Completed 11/27/2007 32034 Tympanometry Completed 11/27/2007 74069 Audiometry, Comprehensive Completed 07/01/2007 60519 Acoustic Reflex Testing Completed 07/01/2007 23780 Tympanometry Completed 07/01/2007 05380 Audiometry, Comprehensive Completed 04/18/2007 [id number] Diabetic Foot Exam Completed 04/18/2007 190822464 Diabetic Retinal Eye Exam Completed 04/18/2007 [id number] Bone Mineral Density Test Completed 04/18/2007 34044 Tympanoplasty W/Mastoidectomy W/O Ossicular Chain Completed Reconstruct 04/18/2007 16426 Cranial Nerve Supplied Muscle Completed 04/18/2007 20826 Intraop Neurophysiology Testing Completed 04/11/2007 64080 Acoustic Reflex Testing Completed 04/11/2007 99080 Tympanometry Completed 04/11/2007 38239 Audiometry, Comprehensive Completed Encounters Type Date Location Provider Dx Diagnosis Office Visit 08/06/2018 Main Office Elliot Swanson M.D. 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 unspecified, left ear Office Visit 03/30/2016 3:45p Main Office Tatianna Powell H70.891 Other mastoiditis CLAU Brown and related conditions, right ear H61.21 Impacted cerumen, right ear Office Visit 07/08/2015 11:30a Main Office Tatianna Powell J02.9 Acute pharyngitis, CLAU Brown unspecified Office Visit 05/11/2015 5:30p Main Office Elliot Swanson, H70.891 Other mastoiditis M.D. 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 Simple Or Unspec Chronic 383.89 Mastoid Disorders Other Office Visit 01/14/2008 4:15p Main Office Elliot Swanson 383.89 Mastoid Disorders M.D. Other Office Visit 01/07/2008 2:45p Main Office Elliot Swanson 383.89 Mastoid Disorders M.D. Other Office Visit 12/31/2007 2:45p Main Office Elliot Swanson, 383.89 Mastoid Disorders M.D. Other 388.60 Otorrhea Unspec Office Visit 12/24/2007 8:00a Main Office Elliot Swanson, 383.89 Mastoid Disorders M.D. Other Office Visit 12/10/2007 4:15p Main Office Elliot Swanson, 383.89 Mastoid Disorders M.D. Other Office Visit 12/06/2007 2:30p Main Office Elliot Swanson, 383.89 Mastoid Disorders M.D. Other Office Visit 12/03/2007 3:45p Main Office Elliot Swanson, 388.60 Otorrhea Unspec M.D. 383.89 Mastoid Disorders Other Office Visit 11/29/2007 2:30p Main Office Elliot Swanson, 383.89 Mastoid Disorders M.D. Other 388.60 Otorrhea Unspec Office Visit 11/27/2007 3:45p Main Office Elliot Swanson, 383.89 Mastoid Disorders M.D. Other 388.60 Otorrhea Unspec Office Visit 11/18/2007 4:15p Main Office Elliot Swanson, 383.89 Mastoid Disorders M.D. Other 246.9 Thyroid Disorders Unspec Office Visit 11/11/2007 4:00p Main Office Elliot Swanson, 383.89 Mastoid Disorders M.D. Other 388.60 Otorrhea Unspec Office Visit 09/09/2007 2:45p Main Office Elliot Swanson, 383.89 Mastoid Disorders M.D. Other Office Visit 08/21/2007 4:45p Main Office Elliot Swanson, 383.89 Mastoid Disorders M.D. Other Office Visit 08/05/2007 4:45p Main Office Elliot Swanson, 383.89 Mastoid Disorders M.D. Other Office Visit 07/22/2007 4:30p Main Office Elliot Swanson, 388.60 Otorrhea Unspec M.D. Office Visit 07/15/2007 4:00p Main Office Elliot Swanson, 383.89 Mastoid Disorders M.D. Other Office Visit 07/05/2007 3:00p Main Office Elliot Swanson, 383.89 Mastoid Disorders M.D. Other Office Visit 07/01/2007 4:00p Main Office Elliot Swanson, 383.89 Mastoid Disorders M.D. Other Office Visit 06/14/2007 4:00p Main Office Elliot Swanson, 383.89 Mastoid Disorders M.D. Other Office Visit 05/28/2007 4:00p Main Office Elliot Swanson, 383.89 Mastoid Disorders M.D. Other 388.60 Otorrhea Unspec Office Visit 05/24/2007 4:15p Main Office Elliot Swanson 383.89 Mastoid Disorders M.D. Other 388.60 Otorrhea Unspec Office Visit 05/22/2007 4:00p Main Office Elliot Swanson, 383.89 Mastoid Disorders M.D. Other 388.60 Otorrhea Unspec Office Visit 05/06/2007 3:30p Main Office Elliot Swanson, 383.89 Mastoid Disorders M.D. Other Office Visit 04/05/2007 3:30p Main Office Elliot Swanson, 383.89 Mastoid Disorders M.D. Other 388.60 Otorrhea Unspec Office Visit 03/25/2007 4:00p Main Office Elliot Swanson, 381.10 Otitis Media M.D. 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
--- OUTSIDE RECORDS SUMMARY | 2018-09-11 03:19 | XMS REPORT | Continuity of Care Document ---
:1980 External Reference #:[id number] Author Name Bettye George Care Team Providers Name Role Phone Kirstin Omalley PA Care Team Information Nailer Machine Unavailable Kirstin Omalley PA Primary Care Physician Unavailable Payers Date Identification Numbers Payment Provider Subscriber Policy Number: [id number] Medicare Yonathan Sarah PayID: [id number] [address] [place] [address] Policy Number: [id number] Medicaid Yonathan Sarah Group Name: 2 1 [address] PayID: [id number] [place] [address] Problems Active Problems Provider Date Anxiety disorder [...] Swanson M.D. 08/06/[address] Percocet 1-2 by mouth 20taElliot Boyle M.D. 05/02/2018 5-325mg four times a day Tablets as needed for pain Naproxen 1 by mouth every Unknown 375mg Tablets day History Medications Prednisone 1 by mouth every day 3tabs Elliot Swanson, 01/22/2018 - 20mg Tablets Adalberto.DMei 04/24/2018 Percocet 1-2 by mouth two 12tabs [...] 2 pills x 1 day then 6tabs Elloit Swanson, 07/08/2015 - 250mg 1 every day [...] Aerosol Vital Signs Date Vital Result Comment 08/06/2018 5:23pm Weight 180.00 lb Height 72 [...] Result H/L Range Note Laboratory test 07/08/2015 [facility] Throat Culture See Note [address] [place] [address] [phone] TSH+Free T4 02/03/2008 [facility] Thyroid Stim 1.93 uIU/mL 0.49-4.[address] [place] [place] [address] [phone] Free T4 0.89 ng/dL 0.71-1.85 1 NORMAL THROAT JOSE Procedures Date Code Description Status 08/06/2018 70397 Fiberoptic Laryngoscopy,Diag. Completed 05/29/2018 02714 unlisted procedure/service otolaryngology Completed 05/02/2018 13650 Replacement Osseointergrated Inplant W/O Mastoidectomy Completed 05/02/2018 41682 Replacement Osseointergrated Inplant W/O Mastoidectomy Completed 05/02/2018 39200 Anesthesia, Facial Bone Surgery Not Otherwise Spec Completed 03/06/2018 55814 Cat Scan Orbit/Ear W/O Contrast,computed tomography Completed 03/06/2018 07826 Cat Scan Orbit/Ear W/O Contrast,computed tomography Completed 03/06/2018 06990 Cat Scan Orbit/Ear W/O Contrast,computed tomography Completed 01/25/2018 94441 Cat Scan Maxillofacial W/O Contrast,computed Completed tomography 01/25/2018 38545 Cat Scan Maxillofacial W/O Contrast,computed Completed tomography 01/25/2018 69644 Cat Scan Maxillofacial W/O Contrast,computed Completed tomography 01/22/2018 93749 Debridement Mastoidectomy Cavity, Simple Completed 01/22/2018 30699 Nasal Endoscopy, Diag. Completed 03/30/2016 67147 Remove Impacted Cerumen Completed 07/01/2015 23790 Implantation Osseointegrated Implant Temporal Bone Completed W/Percutaneous 07/01/2015 87910 Implantation Osseointegrated Implant Temporal Bone Completed W/Percutaneous 07/01/2015 68881 Esophagoscopy/Diagnostic Completed 07/01/2015 05288 Larynogoscopy,Dir. With Or W/O Trach. Diag. W/Opert. Completed Microscope 07/01/2015 72862 Anesthesia, Neck Organ Surgery Not Otherwise Spec 1Yr Completed Or Older 05/25/2015 69820 Audiometry, Comprehensive Completed 05/25/2015 66051 Audiometry, Comprehensive Completed 05/25/2015 41520 Tympanometry Completed 05/25/2015 79340 Tympanometry Completed 05/11/2015 91677 Fiberoptic Laryngoscopy,Diag. Completed 11/27/2007 57804 Tympanometry Completed 11/27/2007 35568 Audiometry, Comprehensive Completed 07/01/2007 55950 Acoustic Reflex Testing Completed 07/01/2007 66449 Tympanometry Completed 07/01/2007 82782 Audiometry, Comprehensive Completed 04/18/2007 [id number] Diabetic Foot Exam Completed 04/18/2007 556163146 Diabetic Retinal Eye Exam Completed 04/18/2007 472086853 Bone Mineral Density Test Completed 04/18/2007 63436 Tympanoplasty W/Mastoidectomy W/O Ossicular Chain Completed Reconstruct 04/18/2007 51057 Cranial Nerve Supplied Muscle Completed 04/18/2007 87269 Intraop Neurophysiology Testing Completed 04/11/2007 78175 Acoustic Reflex Testing Completed 04/11/2007 09356 Tympanometry Completed 04/11/2007 49233 Audiometry, Comprehensive Completed Encounters Type Date Location Provider Dx Diagnosis Office Visit 08/06/2018 Main Office Elliot Swanson M.D. 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 Other Office Visit 01/07/2008 2:45p Main Office Elliot Swanson 383.89 Mastoid Disorders M.D. Other Office Visit 12/31/2007 2:45p Main Office Elliot Swanson, 383.89 Mastoid Disorders M.D. Other 388.60 Otorrhea Unspec Office Visit 12/24/2007 8:00a Main Office Elliot Swanson 383.89 Mastoid Disorders [...] Other Office Visit 06/14/2007 4:00p Main Office Adryan Swansonoj, 383.89 Mastoid Disorders M.D. Other Office Visit 05/28/2007 4:00p Main Office Elliot Swanson, 383.89 Mastoid Disorders M.D. Other 388.60 Otorrhea Unspec Office Visit 05/24/2007 4:15p Main Office Elliot Swanson 383.89 Mastoid Disorders M.D. Other 388.60 Otorrhea Unspec Office Visit 05/22/2007 4:00p Main Office Elliot Swanson, 383.89 Mastoid Disorders M.D. Other 388.60 Otorrhea Unspec Office Visit 05/06/2007 3:30p Main Office Elliot Swanson 383.89 Mastoid Disorders M.D. 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 at Main Office
--- OUTSIDE RECORDS SUMMARY | 2018-09-11 03:19 | XMS REPORT | Continuity of Care Document ---
:1980 External Reference #:[id number] Author Name Katrina Busch Care Team Providers Name Role Phone Mahamed Valiente MD Primary Care Physician Unavailable Payers Date Identification Numbers Payment Provider Subscriber Policy Number: [id number] Medicare Yonathan Sarah PayID: [id number] [address] [place] [address] Expires: 2018 Policy Number: [id number] Medicare Yonathan Sarah PayID: [id number] [address] [place] [address] Policy Number: [id number] Medicaid Yonathan Sarah PayID: [id number] [address] [place] [address] Advance Directives Description No Information Available Problems Active Problems Provider Date Unspecified injury [...] (more than 10 cigarettes/day) Smoking Status Reviewed: 08/15/18 Heavy tobacco smoker (more than 10 cigarettes/day) Allergies, Adverse Reactions, Alerts Active Allergies Reaction Severity Comments Date Penicillin 10/12/2010 Medications Active Medications SIG Qnty Indications Ordering Provider Date Diazepam 1/2 to 1 tablet 30tabs S86.202D Salvador Pantoja 08/15/2018 5mg Tablets every 8 hours as MD [place] needed for pain, MDD 2 Percocet 1/2 to 1 tabs by 60tabs S86.202D [facility] 08/15/2018 5-325mg mouth every 4 - 6 MD Ana Rosa Tablets hours as needed for pain, Generic Ok Naproxen 500mg every 12 60tabs S86.202D [facility] 08/15/2018 500mg Tablets hours orally, MD Ana Rosa generic Ok Clindamycin HCL one tablet three 15caps [facility] 08/15/2018 300mg times daily x 5 MD Ana Rosa Capsules days Percocet take 1 tabs by 30tabs [facility] 08/02/2018 5-325mg mouth q4-6 hours MD Ana [place] Tablets as needed pain Valium 1 tab by mouth q 15tabs [facility] 08/02/2018 5mg Tablets 8 hours as needed MD Ana Rosa spasm Naproxen 1 by mouth twice 30tabs [facility] 08/02/2018 500mg Tablets a day MD Ana Rosa Sulfamethoxazole/Trim 1 tab po bid x 5 10tabs [facility] 08/02/2018 ethoprim DS days MD Ana Rosa 800-160mg Tablets History Medications No Active Medications Unknown 08/01/2018 - 08/02/2018 Immunizations Description No Information Available Vital Signs Date Vital Result Comment 08/15/2018 10:13am Height 72 inches 6'0" Weight [...] 6 BMI (Body Mass Index) 24.4 kg/m2 Results Description No Information Available Procedures Date Code Description Status 08/02/2018 56140 Reconstruct Ligament Knee Extra-Articular Completed 08/02/2018 53531 Reconstruct Ligament Knee Extra-Articular Completed 08/02/2018 00234 Repair Infrapatellar Tendon Primary Completed 08/02/2018 29007 Repair Infrapatellar Tendon Primary Completed Encounters Type Date Location Provider Dx Diagnosis Office Visit 10/12/2010 [facility] Helio Olvera, 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 Prim Lower Leg 844.2 Sprains & Strains Knee Cruciate Ligament Plan of Treatment Future Appointment(s):08/29/2018 10:15 am - Salvador Oseguera MD at [facility]08/15/2018 - Salvador Oseguera, MDS86.202D Unspecified injury of muscle(s) and tendon(s) of anterior muNew Medication: Diazepam 5 mg - 1/2 to 1 tablet every 8 hours as needed for pain, MDD 2Percocet 5-325 mg - 1/2 to 1 tabs by mouth every 4 - 6 hours as needed for pain, Generic OkNaproxen 500 mg - 500mg every 12 hours orally, generic OkNew Therapy:Physical TherapyFollow up:Follow up: 2 weeks - PT
[2018-09-11] MEDS ORDERED: Nicotine PATCH 21 MG/24 HR* PATCH ONE (03:31)
[2018-09-11] MEDS: Nicotine PATCH 21 MG/24 HR* PATCH TRANSDERM SCH ×2 (03:33→07:50)
[2018-09-11] MEDS: oxyCODONE/Acetamin 5/325 MG* TAB PO PRN ×3 (04:21→11:05)
[2018-09-11] MEDS: Lactated Ringers 1000 ML Bag* 1,000 ML IV SCH ×2 (04:21→22:14)
[2018-09-11] MEDS ORDERED: HYDROmorphone INJ1* 1 MG/ML SYRINGE ONE ×3 (06:23→18:57)
[2018-09-11] MEDS: HYDROmorphone INJ1* 1 MG/ML SYRINGE IV PRN ×7 (07:45→19:10)
[2018-09-11 09:35] LABS: ABS Eosinophils 0.1 10^3/ul (0-0.6); ABS Lymphocytes 3.5 10^3/ul (1.0-4.8); ABS Monocytes 0.7 10^3/ul (0-0.8); ABS Neutrophils 3.7 10^3/ul (1.5-7.7); Eosinophil % 1.7 %; Hematocrit 42 % (42-52); Hemoglobin 14.4 g/dL (14.0-18.0); Mean Corpuscular HGB Conc 34 g/dL (31-36); Mean Corpuscular Hemoglobin 32 pg (27-31); Mean Corpuscular Volume 93 fL (80-94); Mean Platelet Volume 7.7 fL (7.4-10.4); Nucleated Red Blood Cells % 0.1; Platelet Count 235 10^3/uL (150-450); Red Blood Count 4.52 10^6 /uL (4.18-5.48); Red Cell Distribution Width 14 % (10.5-15); White Blood Count 8.1 10^3/uL (3.5-10.8)
[2018-09-11 09:38] LABS: INR 1.05 (0.82-1.09)
[2018-09-11 09:48] LABS: BUN/Creatinine Ratio 9.5 (8-20); Calcium 9.7 mg/dL (8.6-10.3); EGFR African American 123.1 (>60); EGFR Non-African American 101.7 (>60); Potassium 3.7 mmol/L (3.5-5.0)
--- NOTE | 2018-09-11 11:26 | HP ---
Amended report to enter cosigning physician. ADMISSION HISTORY AND PHYSICAL: DATE OF ADMISSION: 09/11/18 ATTENDING ORTHOPEDIC PROVIDER: Dr. Salvador Oseguera* (dictated by IKE Ponce). CHIEF COMPLAINT: Left knee wound dehiscence. HISTORY OF PRESENT ILLNESS: The patient is a 37-year-old male with a past medical history of patellar tendon repair on 08/03/[address] Oseguera. He presented to the emergency room on 09/11/18 after falling down the stairs at home, resulting in wound dehiscence of his left knee. Fall occurred when the patient was going up the stairs without his knee brace and without crutches. He had been drinking alcohol and fell backward down 6 to 8 stairs. He did not hit his knee. He landed on his back with his knee flexed most all the way back to his buttock and the incision line split open. He had immediate pain and bleeding of the surgical incision. The patient states that the entire incision seemed to open up. He denies any other injuries. He did not hit his head when he fell. Did not lose consciousness. Up until the time of his fall, feels that his knee had been heeling well. He was progressing well with physical therapy and the incision was well healed. This morning, he is experiencing pain from the left knee better with rest worse with any movement. The emergency room loosely approximated the open wound with sutures, which was stated to be roughly 6 x 3 cm upon arrival. PAST MEDICAL HISTORY: Includes bipolar and COPD. He has never needed medication for COPD. He has no history of heart attack or stroke. PAST SURGICAL HISTORY: Left knee lateral release, external hearing aid implants , multiple mastoidectomies, and left knee patellar tendon repair. The patient has tolerated anesthesia well in the past. CURRENT MEDICATIONS: None. ALLERGIES: PENICILLIN - hives and throat swelling. FAMILY HISTORY: No family history of adverse effects with anesthesia. SOCIAL HISTORY: The patient lives with his girlfriend. He is unemployed. He smokes 1 pack of cigarettes per day. Drinks 6 beers per day, patient states he does not withdraw if he does not drink for several days. REVIEW OF SYSTEMS: General: No fever, chills, or recent illness. HEENT: No acute change in vision or hearing. No headache. No loss of consciousness. Cardiology: No chest pain, no history of MN. Respiratory: No shortness of breath, positive for history of COPD without medication and no history of hospitalization from COPD. GI: No abdominal pain, nausea, vomiting or diarrhea. : No dysuria. Musculoskeletal: Positive for left knee pain. Denies pain of right lower extremity or bilateral upper extremities. Neuro: Sensation intact to all extremities without numbness or paresthesias. Skin: No rash, no lesions. Positive for surgical wound dehiscence. PHYSICAL EXAMINATION GENERAL: The patient appears well. He is in no acute distress. He carries an appropriate conversation. VITAL SIGNS: Temperature 97.4, pulse rate 71, respiratory rate 16, oxygen saturation 100% on room air, and blood pressure 116/75. HEENT: Head: Normocephalic and atraumatic. Extraocular movements intact. RESPIRATORY: Good air exchange throughout all lung beyer. The patient has expiratory wheeze bilaterally. No rales, no rhonchi. CARDIAC: S1, S2, regular rate and rhythm. ABDOMEN: Bowel sounds normoactive. Nontender to palpation. No guarding. No rigidity. MUSCULOSKELETAL: Upper extremities: skin envelop intact. No obvious deformity. Nontender to palpation. Active flexion and extension of digits, wrists, and elbows without any associated pain. Shoulders with nonpainful active forward flexion and abduction. Right lower extremity skin envelope intact. No obvious bony deformity. Nontender to palpation. Active nonpainful flexion and extension of digits, ankle, knee and hip. Negative log roll at the hip. Left lower extremity: The surgical incision has dehisced. It is loosely approximated with sutures. He is wearing an Kanu bandage which has mild bloody discharge. There is no purulence or erythema surrounding. The patient lies with leg held in roughly 20 degrees of flexion. He is able to elicit quadriceps contraction though due to pain does not attempt any straight leg raise or knee range of motion. He is nontender to palpation at the hip , lower leg and foot. NEUROLOGIC: Sensation intact to light touch throughout bilateral upper and lower extremities. VASCULAR: DP pulse 2+ bilaterally. Capillary refill less than 2 seconds distally. PSYCH: Appropriate affect. SKIN: No rash, no lesions. Positive for wound dehiscence of the left knee. DIAGNOSTIC STUDIES/LAB DATA: Results not yet available. ASSESSMENT: Wound dehiscence status post left patellar tendon repair. Possible patellar tendon rupture. PLAN: The patient will remain n.p.o. An MRI of the left knee has been ordered. Preop chest x-ray, EKG, UA, CBC, BMP, INR, Type and screen also ordered. The patient is aware and agreeable to going to the operating room later today with Dr. Oseguera for wound exploration and closure, I and D, and possible revision of the patellar tendon repair. If any sign of alcohol withdrawal, WAM protocol would be appropriate. IKE ANGEL [id number]/[facility] #: [id number] LOIS
[2018-09-11] MEDS ORDERED: ceFAZolin 1 GM in Dextrose (*) 1 GM/50 ML BAG IVPB SCH (11:30)
[2018-09-11 11:40] LABS: Urine Appearance Clear; Urine Bilirubin Negative (Negative); Urine Blood Negative (Negative); Urine Color Straw; Urine Glucose Negative (Negative); Urine Ketones Negative (Negative); Urine Nitrite Negative (Negative); Urine Protein Negative (Negative); Urine Specific Gravity 1.004 (1.010-1.030); Urine Urobilinogen Negative (Negative)
[2018-09-11] MEDS: ceFAZolin 1 GM ADVAN(*) 1 GM in NS 0.9% 50 ML* 50 ML IVPB SCH ×2 (13:06→22:36)
[2018-09-11] MEDS ORDERED: fentaNYL* 50 MCG/ML 2 ML VIAL (100 MCG VIAL) ONE (15:19)
[2018-09-11] MEDS ORDERED: Midazolam* 1 MG/ML 2 ML VIAL (2 MG) ONE ×2 (15:19→19:12)
[2018-09-11] MEDS ORDERED: Propofol* 10 MG/ML 20 ML BTL ONE (15:20)
[2018-09-11] MEDS ORDERED: ceFAZolin 2 GM PREMIX in ORs 2 GM/50 ML BAG ONE (16:16)
[2018-09-11] MEDS ORDERED: Clindamycin 900 MG IVPREMIX(* 900 MG/50 ML SDV IV ONE (16:21)
[2018-09-11] MEDS ORDERED: Levalbuterol 0.63MG/3ML NEB* UNIT OF USE INH ONE ×2 (16:26→16:27)
[2018-09-11] MEDS ORDERED: Bupivacaine 0.5%* 50 ML VIAL ONE (16:29)
--- NOTE | 2018-09-11 16:31 | PN ---
Progress Note - Progress Note Date of Service: 09/11/18 Note: See H&P by Margret Dominguez. I have spoken with patient about his fall down the stairs, at least 8 steps in height. I have examined the patient after removing part of his dressing. I hav reviewed MRI that shows retear patella tendon. To the OR for exploration wound left knee, I&D, revision patellar tendon repair. Also discussed possible closure of distant past lateral retinacular release as appropriate. NPO since hospital. Consented and initialed.
[2018-09-11] MEDS ORDERED: Rocuronium* 10 MG/ML VIAL ONE ×2 (16:45→17:18)
[2018-09-11] MEDS ORDERED: KETAMINE HCL* 50 MG/ML 10 ML VIAL ONE (16:59)
[2018-09-11] MEDS ORDERED: Lidocaine 2% PF * 5 ML VIAL ONE (17:18)
[2018-09-11] MEDS ORDERED: Naloxone* 0.4 MG/ML 1 ML VIAL IV PRN (17:46)
[2018-09-11] MEDS ORDERED: fentaNYL* 50 MCG/ML 2 ML VIAL (100 MCG VIAL) IV PRN (17:46)
[2018-09-11] MEDS ORDERED: Acetaminophen IV 1GM/100ML * 1,000 MG/100 ML VIAL IVPB ONE (17:46)
[2018-09-11] MEDS ORDERED: DiMENhydriNATE IV* 50 MG/ML VIAL IV PUSH PRN (17:46)
[2018-09-11] MEDS ORDERED: Glycopyrrolate IV* 0.2 MG/ML 1 ML VIAL ONE (18:13)
[2018-09-11] MEDS ORDERED: Neostigmine Methylsulfate* 1 MG/ML 10 ML VIAL (1 mg/ml) ONE (18:13)
[2018-09-11] MEDS ORDERED: Ondansetron INJ* 2 MG/ML VIAL ONE (18:14)
[2018-09-11] MEDS ORDERED: Naloxone* 0.4 MG/ML 10 ML VIAL ONE (18:45)
[2018-09-11] MEDS ORDERED: Ketorolac INJ* 30 MG/ML 1 ML VIAL ONE (18:57)
[2018-09-11] MEDS ORDERED: Acetaminophen IV 1GM/100ML * 100 ML ONE (18:57)
[2018-09-11] MEDS ORDERED: Ketorolac INJ* 30 MG/ML 1 ML VIAL IV PUSH PRN (19:10)
[2018-09-11] MEDS ORDERED: Midazolam* 1 MG/ML 2 ML VIAL (2 MG) IV SLOW PU ONE (19:10)
[2018-09-11] MEDS ORDERED: Albuterol 2.5 MG/3 ML NEB.SOL* (0.083%) INH PRN (19:16)
[2018-09-11] MEDS ORDERED: oxyCODONE/Acetamin 5/325 MG* TAB ONE (20:26)
[2018-09-11] MEDS ORDERED: oxyCODONE TAB* 5 MG TAB ONE (20:30)
[2018-09-11] MEDS: oxyCODONE TAB* 5 MG TAB PO PRN (20:30)
[2018-09-11] MEDS ORDERED: Lorazepam PYXIS KEY PRN (22:15)
[2018-09-11] MEDS: Nicotine Patch Removal NOTE PATCH OFF SCH (22:17)
[2018-09-11] MEDS ORDERED: Docusate CAP* 100 MG PO PRN (22:23)
[2018-09-11] MEDS ORDERED: diPHENhydraMINE PO* 25 MG PO PRN (22:31)
[2018-09-11] MEDS: [UNRECOGNIZED DRUG - REMARK] IV PUSH SCH (22:47)
[2018-09-11] MEDS: ceFAZolin 1 GM* X 3 DOSES POST-OP Q8H (AddVan) IVPB SCH ×2 (23:52)
[2018-09-12] MEDS: oxyCODONE/Acetamin 5/325 MG* TAB PO PRN ×5 (03:10→21:22)
[2018-09-12 05:51] LABS: Hematocrit 36 % (42-52); Hemoglobin 12.5 g/dL (14.0-18.0)
[2018-09-12 06:02] LABS: Calcium 9.3 mg/dL (8.6-10.3); Potassium 4.3 mmol/L (3.5-5.0)
[2018-09-12 06:08] LABS: BUN/Creatinine Ratio 12.8 (8-20); EGFR African American 119.8 (>60)
[2018-09-12] MEDS: oxyCODONE TAB* 5 MG TAB PO PRN ×5 (06:08→23:00)
[2018-09-12] MEDS: Cyclobenzaprine TAB* 10 MG PO PRN ×2 (06:09→16:44)
[2018-09-12] MEDS: ceFAZolin 1 GM* X 3 DOSES POST-OP Q8H (AddVan) IVPB SCH ×4 (07:29→16:14)
[2018-09-12] MEDS: Nicotine PATCH 21 MG/24 HR* PATCH TRANSDERM SCH (08:14)
--- NOTE | 2018-09-12 08:55 | OP ---
OPERATIVE REPORT: DATE OF OPERATION: 09/11/18 DATE OF : 76 SURGEON: Salvador Oseguera MD RADIO AERIAL INSTALLER: IKE Ponce. A physician registered dental assistant rda was required for the length of the procedure for assistance with patient positi oning, retraction, instrumentation, and closure. ANESTHESIOLOGIST: Dr. Mele Keita. ANESTHESIA: General anesthesia. PRE-OP DIAGNOSES: 1. Status post left knee open patella tendon repair, removal of loose body, medial retinaculum repai r, 08/02/18. 2. Wound dehiscence with a high energy injury, 09/10/18. 3. 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 POST-OP DIAGNOSES: 1. Status post left knee open patella tendon repair, removal of loose body, medial retinaculum repai r, 08/02/18. 2. Wound dehiscence with a high energy injury, 09/10/18. 3. 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 OPERATIVE PROCEDURE: 1. Left knee open revision patellar tendon repair. 2. Modifier 22 for an unusual or complex procedure. I chose this because this patient required expl oration of wound, irrigation, and debridement and drainage, removal of prior sutures and suture ancho r, and a revision repair. ANTIBIOTICS: Clindamycin 900 mg IV. IV FLUIDS: 1300 cc crystalloid. TOURNIQUET TIME: 69 minutes at 300 mmHg, left thigh tourniquet. DLNH-KZ-TLMR TIME: 68 minutes. FLUIDS USED FOR IRRIGATION AND DEBRIDEMENT: Approximately 8 L. SPECIMEN: None. IMPLANTS: I used FiberWire #5 and bone tunnels. COMPLICATIONS: None. 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 Four days later, the patient underwent an uncomplicated left knee open patellar tendon repair. While I was doing the procedure, I also removed what looked to be a chronic loose body about the medial as pect of the patellofemoral compartment. I did medial retinaculum repair using a suture anchor. Paula ent also had a rent in the lateral retinaculum, that looked to have been chronic from a distant past history of lateral retinacular release. I assessed this, but did not close it as it had been present for many years. I followed the patient postoperatively and typically very conservative and minimize weightbearing and insist on brace wear locked in extension for the longest possible number of weeks according to my ysical therapy protocol. I last saw the patient in clinic on 08/29/18. The patient at this point was 1 day shy of 4 weeks pos toperative. He was discharged on physical therapy thereafter on 09/04/18. The patient was to be toe -touch weightbearing with the knee brace locked in extension using an assistive device such as crutch es at all times. Patient stated he had been doing very well. Knee was feeling very good. He said he already reached 90 degrees of knee flexion in physical therapy. Unfortunately, last night, the patient was inebriated, drunk, not using any assistive device and not in his knee brace and he fell. Patient states that he slipped down the stairs and fell 8 steps. When he landed, he hyperflexed sudd enly his left knee. The patient noted that his wound split open and that he could see the inside of his knee. Patient came to the [facility] Emergency Room. My colleague who was graves registration specialist was notified. The ER staff andrew johan the wound and loosely closed it with sutures. The patient was started on Ancef IV antibiotics. Orthopedic Surgery Service admitted the patient, started the patient on IV antibiotics and made the p atient NPO for surgery this afternoon or early evening. We got an MRI while we were waiting for surgery, which demonstrated a recurrent tear of the proximal patellar tendon. Discussed the risks and potential complications of surgery with the patient. The patient is very apologetic for his reinjury. DESCRIPTION OF PROCEDURE: In the preoperative holding, the patient signed a written consent. The op erative extremity was marked in the preoperative holding. The patient was taken back to the operating room. He was sedated and intubated on the stretcher and moved to the operating room table. A tourn iquet was placed about the left proximal thigh. The pump was placed under the left hemipelvis. It was noted he did not have great hygiene, did have much dirt around his fingernails and toe nails. We spent a considerable period of time cleaning the left lower extremity. This was done with Betadin e scrub and paint, but it was also done with a sponge with a bristle sign on it to remove the deep se ated dirt about the left knee. Prepped and then draped. A surgical time-out performed. Esmarch was applied and tourniquet was elevated to 300 mmHg. I next removed stitches that were in place. I discarded stitches and instruments used to remove them . I examined the wound. The proximal two thirds of the wound had dehisced, opened up with the exten sor mechanism of the knee clearly visible. Closure inspection easily showed complete disruption of th e patellar tendon. No contamination or dirt within the wound appreciated. No pus. I extended the incision distally through the prior incision scar. I dissected down through the jones lar tendon. We next removed all visible stitches. These were easiest to find in the patellar tendon because they were size FiberWire #2. We removed these. We removed a suture anchor from the medial aspect of the patella that had been used to close the medial retinaculum from a suture there. I removed at the di stal end of the incision some visible stitches in the subcutaneous tissue. I next irrigated the wound with pulse lavage and 6 L of fluid. Inspection of the knee joint itself showed grade 1 to 2 wear at the distal aspect of the patella. Th ere was also loss of cartilage about the lateral and peripheral most aspect of the lateral femoral co ndyle. I considered suture anchors versus bone tunnels. Because bone tunnels would allow a wider more kory o r footprint, as the most standard treatment, I decided to again pursue bone tunnels. Bone tunnels from prior cases had mostly closed, so I needed to drill new ones. I drilled with a 2-mm drill bit 3 tunnels parallel to each other in the patella from distal to proxim al. I placed a passing stitch using PDS 2.0 suture using a [employer] suture passer. I used FiberWire #5 suture and passed 2 Krackow whipstitches in the patellar tendon. I used the PDS suture to pass the FiberWire across the patella. I had made 3 slits, vertical in the quadriceps tend on to facilitate suture management. I brought the medial 2 sutures to the medial most at the 3 slits and the lateral most 2 sutures to the lateral most slit. I tied these with the knee in full extensi on. Excellent affixment of patellar tendon to distal patella. This was a robust repair. Just with this repair in and of itself, I was able to flex the knee comfor tably to 40 degrees without any liftoff. I next repaired the medial retinaculum with multiple [id number] stitches using FiberWire #2 sutu re. Also placed several of these stitches in the lateral retinaculum. It was actually a lateral ret inacular layer with scar tissue layer in this place so that the joint was not confluent with the subc utaneous tissue. I suspect that this might happen during the healing process with the patient locked in extension for a prolonged period of time. I tested the knee in at least 50 degrees of flexion, appeared to be safe. Irrigation with another 1 to 2 L. Closure of the subcutaneous tissue layer with buried simple stitch es using Vicryl 2-0 suture. Closure of the skin with jocelynn. Xeroform, 4 x 4's, ABDs, sterile Webri l, Kanu bandage, cooling unit. Knee brace locked in extension. DISPOSITION: The patient was awakened, extubated and transferred to the PACU. Patient was given clin damycin intraoperatively because of a PENICILLIN allergy noticed historically. However, since the pa tient received Ancef without difficulty, preoperative and I anticipated the patient being an antibiot ic for 10 days, decided to convert the patient to cephalosporin postoperatively. The patient will re ceive Ancef 1 g IV q.8 hours for 24 hours postoperatively and then will be discharged home with Kefle x 500 mg p.o. t.i.d. x10 days. This is to prevent an infection given that the patient dehisced his w ound and it was loosely closed for a period of time after being opened for a period of time. The pat ient will be in a knee brace locked in extension at all times, toe-touch weightbearing only with crut ches. The patient was admitted to my service postoperatively for pain control and functional managem ent. He will be discharged 1 to 2 days postoperatively. He will return early in the week of 9 in clinic for a wound check. We will keep the dressing in place until that time. [id number]/[facility] #: [id number]
[2018-09-12] MEDS: Aspirin EC TAB* 325 MG PO SCH ×2 (12:38→21:22)
[2018-09-12] MEDS: [UNRECOGNIZED DRUG - REMARK] IV PUSH SCH (13:02)
[2018-09-12] MEDS: Lactated Ringers 1000 ML Bag* 1,000 ML IV SCH (13:09)
--- NOTE | 2018-09-12 13:50 | PN ---
Progress Note - Progress Note Date of Service: 09/12/18 SOAP: Subjective: []Pt seen at bedside. He feels well without CP, SOB, dizziness, nausea. LLE pain is well controlled. He has has asymptomatic tachycardic, he admits to drinking a 12 pack of beer daily. Objective: []General: NAD, appears comfortable LLE: Left knee IROM locked in extension, dressing CDI, thigh is soft, DP2+, DF/ PF intact, sensation intact to light touch distally. Calves supple and nontender without erythema, edema or palpable cords Assessment: []1. Status post left knee open patella tendon repair, removal of loose body, medial retinaculum repair, 08/02/18. 2. Wound dehiscence with a high energy injury, 09/10/18. 3. 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 OPERATIVE PROCEDURE: 1. Left knee open revision patellar tendon repair. Plan: []NWB LLE, may toe touch for transfers only Left knee to be in IROM locked in extension at all times. Keep dressing CDI until follow up visit, follow up with Dr Oseguera early next week Ancef x 24 hours then keflex x 10 days Suspect alcohol withdrawal, WAM protocol and fluids, hospitalist consult placed Vital Signs Temp 98.6 F 09/12/18 11:51 Pulse 115 09/12/18 11:51 Resp 18 09/12/18 13:02 BP 117/76 09/12/18 11:51 Pulse Ox 98 09/12/18 11:51 Intake & Output 09/11/18 09/12/18 09/12/18 18:59 06:59 18:59 Intake Total 1405 1060 2914 Output Total 1350 1250 1100 Balance 55 -190 1814 Intake: IV Fluids 8316 888 8725 CLINDMYCIN 900MG IN 50ML 50 NS LR 2902 272 1623 Medicated IV 55 150 Cefazolin 55 150 Oral 0 610 840 Output: Urine 1350 1250 1100 Other: # Bowel Movements 0 Estimated Blood Loss 20 Comment Laboratory Last Values WBC 8.1 10^3/uL (3.5-10.8) 09/11/18 09:09 RBC 4.52 10^6 /uL (4.18-5.48) 09/11/18 09:09 Hgb 12.5 g/dL (14.0-18.0) L 09/12/18 05:28 Hct 36 % (42-52) L 09/12/18 05:28 MCV 93 fL (80-94) 09/11/18 09:09 MCH 32 pg (27-31) H 09/11/18 09:09 MCHC 34 g/dL (31-36) 09/11/18 09:09 RDW 14 % (10.5-15) 09/11/18 09:09 Plt Count 235 10^3/uL (150-450) 09/11/18 09:09 MPV 7.7 fL (7.4-10.4) 09/11/18 09:09 Neut % (Auto) 45.6 % 09/11/18 09:09 Lymph % (Auto) 44.0 % 09/11/18 09:09 Jewell % (Auto) 8.3 % 09/11/18 09:09 Eos % (Auto) 1.7 % 09/11/18 09:09 Baso % (Auto) 0.4 % 09/11/18 09:09 Absolute Neuts (auto) 3.7 10^3/ul (1.5-7.7) 09/11/18 09:09 Absolute Lymphs (auto) 3.5 10^3/ul (1.0-4.8) 09/11/18 09:09 Absolute Monos (auto) 0.7 10^3/ul (0-0.8) 09/11/18 09:09 Absolute Eos (auto) 0.1 10^3/ul (0-0.6) 09/11/18 09:09 Absolute Basos (auto) 0.0 10^3/ul (0-0.2) 09/11/18 09:09 Absolute Nucleated RBC 0.0 10^3/ul 09/11/18 09:09 Nucleated RBC % 0.1 09/11/18 09:09 INR (Anticoag Therapy) 1.05 (0.82-1.09) 09/11/18 09:09 Sodium 137 mmol/L (135-145) 09/12/18 05:28 Potassium 4.3 mmol/L (3.5-5.0) 09/12/18 05:28 Chloride 104 mmol/L (101-111) 09/12/18 05:28 Carbon Dioxide 24 mmol/L (22-32) 09/12/18 05:28 Anion Gap 9 mmol/L (2-11) 09/12/18 05:28 BUN 11 mg/dL (6-24) 09/12/18 05:28 Creatinine 0.86 mg/dL (0.67-1.17) 09/12/18 05:28 Est GFR ( Amer) 119.8 (>60) 09/12/18 05:28 Est GFR (Non-Af Amer) 99.0 (>60) 09/12/18 05:28 BUN/Creatinine Ratio 12.8 (8-20) 09/12/18 05:28 Glucose 88 mg/dL (70-100) 09/12/18 05:28 Calcium 9.3 mg/dL (8.6-10.3) 09/12/18 05:28 Urine Color Straw 09/11/18 11:00 Urine Appearance Clear 09/11/18 11:00 Urine pH 6.0 (5-9) 09/11/18 11:00 Ur Specific [place] 1.004 (1.010-1.030) L 09/11/18 11:00 Urine Protein Negative (Negative) 09/11/18 11:00 Urine Ketones Negative (Negative) 09/11/18 11:00 Urine Blood Negative (Negative) 09/11/18 11:00 Urine Nitrate Negative (Negative) 09/11/18 11:00 Urine Bilirubin Negative (Negative) 09/11/18 11:00 Urine Urobilinogen Negative (Negative) 09/11/18 11:00 Ur Leukocyte Esterase Negative (Negative) 09/11/18 11:00 Urine Glucose Negative (Negative) 09/11/18 11:00 Blood Type A Positive 09/11/18 09:09 Antibody Screen Negative 09/11/18 09:09
[2018-09-12] MEDS: HYDROmorphone INJ1* 1 MG/ML SYRINGE IV PRN (16:44)
[2018-09-12] MEDS: Nicotine Patch Removal NOTE PATCH OFF SCH (21:23)
--- NOTE | 2018-09-12 22:42 | CONS ---
CONSULTATION REPORT: DATE OF CONSULT: 09/12/18 REQUESTING PHYSICIAN: Dr. Oseguera. ATTENDING PHYSICIAN: Dr. Daugherty (dictated by Rashida Cornell NP). REASON FOR CONSULTATION: Tachycardia. HISTORY OF PRESENT ILLNESS/HOSPITAL COURSE: I will refer you to the H and P dictated on 09/11/18 by Margret Dominguez for complete details, but in short, Mr. Sarah is a 37-year-old male with the past medical history significant for bipolar and COPD, who presented to the emergency room on 09/11/18 after falling down stairs at home, resulting in wound dehiscence of his left knee that was previously a surgical site of a previous patellar tendon repair on 08/03/[address] Oseguera. The patient was admitted and taken to the operating room for a wound exploration and closure, I and D, and possible revision of patellar tendon repair. The patient is postop day 1. Hospitalist were asked to consult regarding tachycardia. PAST MEDICAL HISTORY: 1. Bipolar. 2. COPD. PAST SURGICAL HISTORY: 1. Left knee lateral release. 2. External hearing aid implants. 3. Multiple mastoidectomies. 4. Left knee patellar tendon repair. HOME MEDICATIONS: No home meds. ALLERGIES: PENICILLIN. FAMILY HISTORY: The patient reports his father has had multiple MIs. The patient reports his mother when the patient was at the age of 8. SOCIAL HISTORY: The patient reports he drinks about a 12-pack of beer per day, sometimes a 15-pack. The patient reports he smokes a pack of cigarettes per day. The patient lives with his girlfriend. The patient is unemployed. The patient reports occasional marijuana use. The patient denies other drug use. REVIEW OF SYSTEMS: The patient reports pain in left knee. The patient denies chest pain, palpitations, shortness of breath, dizziness, tremors, nausea, vomiting, diaphoresis. A 14-point review of systems completed and all were negative. PHYSICAL EXAM: General: Mr. Sarah is a 37-year-old man who is sitting in bed, appears to be in no acute distress, appears stated age. Vital Signs: Temp 99.7, HR 119, RR 18, O2 saturation 98% on room air, BP 151/ 83. HEENT: EOMs intact. PERRLA. Oral mucosa is moist without lesions. Posterior pharynx is clear. Cardiac: S1, S2 present. No murmurs, rubs, or gallops. Increased rate. Regular rhythm. Respiratory: Lungs are clear to auscultation. No wheezes, rhonchi, or rales. Good aeration. Abdomen: Soft, nontender. Bowel sounds normoactive. Extremities: No clubbing or cyanosis. No edema. Sensation intact. Musculoskeletal: Pain to the left knee. Otherwise, no pain or deformities. Skin: Skin is grossly intact. Dressing to left knee is clean, dry, and intact. Neuro: Neuro exam is grossly intact. No focal deficits or weakness. DIAGNOSTIC STUDIES/LAB DATA: Hemoglobin 12.5, hematocrit 36. Sodium 137, potassium 4.3, chloride 104, carbon dioxide 24, BUN 11, creatinine 0.86. ASSESSMENT AND PLAN: Mr. Sarah is a 37-year-old male with a past medical history significant for bipolar and chronic obstructive pulmonary disease, who presented to [facility] after a fall. The patient is status post left knee open revision patellar tendon repair. He is on short-stay surgical. 1. Status post left knee open patellar tendon repair: The patient is postop day 1. Management per ortho team. 2. Bipolar: The patient carries the medical history of bipolar, but he is not on any current medication. Supportive care. The patient should be referred to his primary care and possibly psychiatrist as an outpatient. 3. Chronic obstructive pulmonary disease: The patient does carry a history of chronic obstructive pulmonary disease. The patient's chest x-ray that was obtained while here in the hospital reveals no active cardiopulmonary disease. The patient is not on inhalers. The patient is oxygenating well and breathing well. Supportive care. The patient should follow up with his primary care regarding this diagnosis. 4. Tachycardia: As mentioned above, the hospitalist team was consulted given the patient's tachycardia. I agree with IV fluids, which are being administered by the ortho team. I also agree with the patient being placed on WAM protocol given his alcohol history. I suspect the patient's tachycardia is due to alcohol withdrawal and possible dehydration. The patient has no cardiac symptoms. I would continue to monitor the patient. I have a low suspicion for cardiac etiology as the patient has no chest pain, shortness of breath, diaphoresis, or other concerning symptoms. The patient also does not carry many risk factors. I have a low suspicion for a pulmonary embolism as the patient has no shortness of breath, pleuritic chest pain, or increased respirations, although the patient did have surgery, I would keep this in mind if the patient continues to have tachycardia. 5. Hypertension: The patient is mildly hypertensive at 151/83. I suspect this could also be secondary to the patient's possible alcohol withdrawal. Continue WA protocol. 6. FEN: Diet has been ordered by the ortho team. 7. Code status: The patient is a full code. 8. DVT prophylaxis: The patient is on aspirin 325 mg p.o. b.i.d. I would defer further DVT prophylaxis to the primary team. TIME SPENT: Approximately 45 minutes were spent on this consultation, greater than half the time was spent with the patient and caregiver, obtaining my history, performing physical exam, and reviewing my plan of care. This case has been reviewed with my attending Dr. Daugherty, who is in agreement with my plan of care. Reviewed by RASHIDA CORNELL NP 09/14/18 @ [id number]/CPS #: [id number]
[2018-09-13] MEDS: Cyclobenzaprine TAB* 10 MG PO PRN (00:25)
[2018-09-13] MEDS: Cephalexin CAP* 500 MG PO SCH ×2 (00:26→10:27)
[2018-09-13] MEDS: HYDROmorphone INJ1* 1 MG/ML SYRINGE IV PRN ×2 (00:26→10:28)
[2018-09-13] MEDS: Lactated Ringers 1000 ML Bag* 1,000 ML IV SCH (00:31)
[2018-09-13] MEDS: oxyCODONE/Acetamin 5/325 MG* TAB PO PRN ×2 (02:12→07:07)
[2018-09-13] MEDS: oxyCODONE TAB* 5 MG TAB PO PRN (04:31)
[2018-09-13] MEDS: [UNRECOGNIZED DRUG - REMARK] IV PUSH SCH (04:41)
[2018-09-13 06:59] LABS: Hematocrit 31 % (42-52); Hemoglobin 10.7 g/dL (14.0-18.0)
[2018-09-13 07:07] LABS: Calcium 9.2 mg/dL (8.6-10.3); Magnesium 1.8 mg/dL (1.9-2.7); Potassium 4.1 mmol/L (3.5-5.0)
[2018-09-13 07:13] LABS: BUN/Creatinine Ratio 7.8 (8-20); EGFR African American 113.7 (>60); EGFR Non-African American 93.9 (>60)
[2018-09-13] MEDS ORDERED: Magnesium Sulfate 2 GM IV* 2 GM/50 ML BAG IVPB ONE (09:22)
[2018-09-13] MEDS: Aspirin EC TAB* 325 MG PO SCH (10:27)
[2018-09-13] MEDS: Nicotine PATCH 21 MG/24 HR* PATCH TRANSDERM SCH (10:28)
[2018-09-13 10:30] VITALS: BP 131/86
--- NOTE | 2018-09-13 10:47 | DS ---
Orthopedic Discharge Summary - Discharge Summary Date of Admission:09/11/18 Date of Discharge: 09/13/18 Date of Surgery: 09/11/18 Attending Orthopedic Provider: Dr. Oseguera Pre-operative Diagnosis: Re rupture left patellar tendon Operative Procedure: Revision repair ruptured left patellar tendon Disposition of Patient: Home Condition of Patient: stable History: KIKI JI is a 37 year old M who fell and ruptured his patellar tendon with resultant repair on 08/03/18. He was drinking and fell backwards down stairs at 1 am 09/11/18 opening his wound and re tearing the patellar tendon repair. Hospital Course: KIKI was admitted to [facility] on 09/12/18. Patient underwent a revision repair left patellar tendon rupture without complication followed by a brief recovery in PACU and transfer to the Short Stay Surgical Unit in stable condition. Our physical therapy and occupational therapy also participated in this patients care. Post-op day 1: patient was alert and in no acute distress. Dressing was clean, dry and intact. Operative extremity dorsiflexion and plantarflexion intact, sensation intact to light touch distally, DP2+. He met WAM protocol and was followed closely, given fluids and Valium. His tachycardia resolved and was exhibiting no signs of alcohol withdrawl by post op day #2. Post-op day two: dressing was changed, incision was clean, dry and intact. Calf non tender. Patient was deemed to be medically and orthopedically stable for discharge. Physical therapy goals were met. Home Medications Medication Instructions Recorded Confirmed Type Aspirin EC TAB* [Ecotrin EC TAB*] 325 mg PO BID #28 tab.ec 09/13/18 Rx Cephalexin CAP* [Keflex 500 CAP*] 500 mg PO TID #30 cap 09/13/18 Rx Cyclobenzaprine TAB* [Flexeril 10 10 mg PO Q8H PRN #30 tab 09/13/18 Rx MG TAB*] Docusate CAP* [Colace Cap*] 100 mg PO BID PRN cap 09/13/18 Rx oxyCODONE/Acetamin 5/325 MG* 1 - 2 tab PO Q4H PRN #70 tab MDD 10 09/13/18 Rx [Percocet 5/325 TAB*] nwb LLE No bending left knee brace on at all times except bathing follow up 10-[address] Oseguera Meds as above
== END 2018-09-13 12:27 | disposition home or self-care (01) | DRG 501 ==
LOC: ED 02:33 → SSU 03:02 → OBSVTOIN 09-12 15:12
PROVIDERS: ADMIT Physician Assistant; ATTEND Orthopaedic Surgery
PROC: 0LUR0JZ Supplement Left Knee Tendon with Synthetic Substitute, Open Approach (ICD-10-PCS; principal; 2018-09-11 16:00)
PROC: 0HQLXZZ Repair Left Lower Leg Skin, External Approach (ICD-10-PCS; 2018-09-12)
DX: S76.112A Strain of left quadriceps muscle, fascia and tendon, initial encounter (principal); T81.31XA Disruption of external operation (surgical) wound, not elsewhere classified, initial encounter; F41.0 Panic disorder [episodic paroxysmal anxiety]; F17.210 Nicotine dependence, cigarettes, uncomplicated; Y79.3 Surgical instruments, materials and orthopedic devices (including sutures) associated with adverse incidents; F31.9 Bipolar disorder, unspecified; K21.9 Gastro-esophageal reflux disease without esophagitis; F41.9 Anxiety disorder, unspecified; N20.0 Calculus of kidney; J44.9 Chronic obstructive pulmonary disease, unspecified; W01.0XXA Fall on same level from slipping, tripping and stumbling without subsequent striking against object, initial encounter; Z96.21 Cochlear implant status; H91.90 Unspecified hearing loss, unspecified ear; R00.0 Tachycardia, unspecified; I10 Essential (primary) hypertension; Y92.008 Other place in unspecified non-institutional (private) residence as the place of occurrence of the external cause; Z82.5 Family history of asthma and other chronic lower respiratory diseases; Z88.0 Allergy status to penicillin; Z86.19 Personal history of other infectious and parasitic diseases; Z72.89 Other problems related to lifestyle; Z56.0 Unemployment, unspecified; Z79.82 Long term (current) use of aspirin
CPT/HCPCS: 36415; 71045; 80048; 81003; 83735; 85014; 85018; 85025; 85610; 86850; 86900; 86901; 93005; 99283; A9270-GY; G0378; G8978-GP-CI; G8979-GP-CI; G8980-GP-CI; J0690; J1170; J1885; J2060; J2250; J2270; J2310; J2405; J2704; J2710; J3010; J3475; J3490

== ENCOUNTER 2023-07-03 11:18 | Inpatient (IN) ==
[2023-07-03 13:08] LABS: ABS Eosinophils 0.1 10^3/uL (0.0-0.5); ABS Lymphocytes 1.6 10^3/uL (1.0-4.8); ABS Monocytes 0.7 10^3/uL (0.0-1.1); ABS Neutrophils 6.7 10^3/uL (1.5-7.6); ABS Nucleated RBC 0.01 10^3/ul; Eosinophil % 0.6 %; Hematocrit 47.6 % (38-53); Hemoglobin 16.2 g/dL (13.2-16.3); Lymphocyte % 17.5 %; Mean Corpuscular Volume 91.3 fL (80-97); Mean Platelet Volume 7.7 fL (7.5-11.2); Nucleated Red Blood Cells % 0.1 %/100WBC (0.0-0.8); Platelet Count 279 10^3/uL (150-450); Red Blood Count 5.21 10^6/uL (4.06-5.63); White Blood Count 9.1 10^3/uL (3.6-10.2)
[2023-07-03 13:30] LABS: ALT 17 U/L (7-52); AST 20 U/L (13-39); Acetaminophen < 15 mcg/mL; Albumin/Globulin Ratio 1.5 (1-3); Alcohol, S < 13 mg/dL (<13); Alkaline Phosphatase 102 U/L (35-149); Anion Gap 7 mmol/L (2-16); Blood Urea Nitrogen 11 mg/dL (6-24); CO2 Carbon Dioxide 30 mmol/L (22-32); Calcium 9.7 mg/dL (8.6-10.3); Chloride 103 mmol/L (101-111); Globulin 2.7 g/dL (2-4); Glucose 98 mg/dL (70-100); Potassium 4.5 mmol/L (3.5-5.0); Salicylate < 2.50 mg/dL (<30); Sodium 140 mmol/L (135-145); Total Bilirubin 0.6 mg/dL (0.2-1.0); Total Protein 6.7 g/dL (6.4-8.9); eGFR CKD-EPI 95.2 (>60)
[2023-07-03 13:44] LABS: TSH Ultra Thyroid Stim Horm 0.47 mcIU/mL (0.34-5.60)
[2023-07-03] MEDS: Ciproflox/Dexameth OTIC.SUSP 7.5 ML BTL LEFT EAR SCH (14:27)
[2023-07-03 16:53] LABS: HIV 4th Generation Nonreactive (Nonreactive)
[2023-07-03] MEDS: Multivitamins/Minerals TAB PO SCH (18:14)
[2023-07-03 19:35] LABS: Urine Benzodiazepine Screen None Detected (None Detect); Urine Cannabinoids Screen Presumptive Positive (None Detect); Urine Opiates Screen None Detected (None Detect)
[2023-07-04] MEDS ORDERED: Al Hydrox/Mg Hydrox/Simet LIQ 30 ML UDC PO PRN (02:08)
[2023-07-04] MEDS ORDERED: Nicotine GUM 2MG FRUIT FLAVOR PO PRN (03:00)
[2023-07-04] MEDS ORDERED: Albuterol HFA INHALER 8 gm MDI INH PRN (05:25)
[2023-07-04] MEDS: Vitamin THERAPEUTIC TAB PO SCH (11:21)
[2023-07-04] MEDS: Nicotine PATCH 21 MG/24 HR PATCH TRANSDERM SCH (11:22)
[2023-07-05 08:00] LABS: HDL Cholesterol 24.3 mg/dL
[2023-07-05] MEDS: Ondansetron ODT 4 mg TAB 4 MG TAB SL PRN (17:35)
[2023-07-05] MEDS ORDERED: diazePAM INJ CARPUJECT 5 MG/ML SYRINGE IV ONE (18:04)
[2023-07-05] MEDS: diazePAM INJ CARPUJECT 5 MG/ML SYRINGE IV ONE (18:25)
[2023-07-05] MEDS: Metoclopramide 5 MG/ML VIAL (10 mg) IV SLOW PU PRN (18:25)
[2023-07-05] MEDS: Lactated Ringers 1000 ml BAG 1,000 ML IV ONE (18:26)
[2023-07-06] MEDS: diazePAM INJ CARPUJECT 5 MG/ML SYRINGE IV ONE ×2 (14:11→17:55)
[2023-07-07 06:31] LABS: Hematocrit 44.9 % (38-53); Hemoglobin 15.1 g/dL (13.2-16.3); Mean Corpuscular Hemoglobin 30.9 pg (27-33); Mean Corpuscular Hgb Conc 33.6 g/dL (31-36); Mean Corpuscular Volume 91.9 fL (80-97); Mean Platelet Volume 7.4 fL (7.5-11.2); Platelet Count 314 10^3/uL (150-450); Red Blood Count 4.89 10^6/uL (4.06-5.63); Red Cell Distribution Width 15.4 % (12-17); White Blood Count 7.1 10^3/uL (3.6-10.2)
[2023-07-07 07:19] LABS: Calcium 9.3 mg/dL (8.6-10.3); Creatinine, Serum 0.92 mg/dL (0.67-1.17); Potassium 4.7 mmol/L (3.5-5.0); eGFR CKD-EPI 105.2 (>60)
[2023-07-09] MEDS: Nicotine Lozenge mini 4 MG LOZNG.MINI MT PRN (15:54)
[2023-07-12 08:14] VITALS: BP 135/82
== END 2023-07-12 12:05 | disposition home or self-care (01) | DRG 897 ==
LOC: ED 11:18 → SUATTDRO 07-04 01:36 → EDHOLD 07-04 01:36 → BSU 07-04 02:04 → MED 07-05 19:19 → BSU 07-08 15:34
PROVIDERS: ADMIT Psychiatry & Neurology Psychiatry; ATTEND Psychiatry & Neurology Psychiatry